=== PATIENT | male | born 1930 | race Caucasian/White ===

== ENCOUNTER 2017-03-15 08:25 | Emergency (ER) | payer OTHER ==
[~2017-03-15] VITALS: Ht 167.6 cm; Wt 95.2 kg
[~2017-03-15 08:25] MED LIST: ALBU90OI61 INH; ALLO300 PO; CALCAVITD PO; CHOL10002 PO; CLOP75 PO; ERGO400 PO; FEBU40TA PO; FISH OIL + D31 EACH; FLAX PO; FURO40 PO; GABA300 PO; Humalog100 UNIT/1; INDO50 PO; INSDET100 SQ; INSULANPEN SQ; ISOMON60ER PO; LISI20 PO; LOSA25 PO; METF500 PO; MOME220I IH; OSEL75CA PO; POTCHL10ER PO; PROB500 PO; SPIR50 PO; Simvastatin20 MG PO; TAMS.4ER PO; TRIA80TC TOP; WARF1 PO; WARF5 PO; [UNRECOGNIZED DRUG - OTHER]
[2017-03-15 09:43] LABS: BASOPHILS ABSOLUTE AUTO 0.02 K/mm3 (0.00-0.23); BASOPHILS PERCENT AUTO 0 % (0-2); EOSINOPHILS ABSOLUTE AUTO 0.25 K/mm3 (0.00-0.68); EOSINOPHILS PERCENT AUTO 3 % (0-6); Hematocrit 38.2 % (37.0-53.0); Hemoglobin 12.6 g/dL (13.5-17.5); IMMATURE GRAN ABSOLUTE AUTO 0.01 K/mm3 (0.00-0.10); IMMATURE GRAN PERCENT AUTO 0 % (0-1); LYMPHOCYTES ABSOLUTE AUTO 1.72 K/mm3 (0.84-5.20); LYMPHOCYTES PERCENT AUTO 24 % (21-46); MONOCYTES PERCENT AUTO 7 % (4-13); Mean Corpuscular HGB 28.3 pg (26.0-34.0); Mean Corpuscular Volume 86 fL (80-100); Mean Platelet Volume 10.1 fL (9.1-12.4); NEUTROPHILS ABSOLUTE AUTO 4.79 K/mm3 (1.96-9.15); NEUTROPHILS PERCENT AUTO 66 % (41-73); Platelet Count 190 K/mm3 (150-400); RDW Coefficient Variation 14.4 % (11.7-14.2); RDW Standard Deviation 45.2 fL (35.1-46.3); Red Blood Cell Count 4.45 M/mm3 (4.30-5.90); White Blood Cell Count 7.29 K/mm3 (4.00-11.30)
[2017-03-15 10:03] LABS: Alanine Aminotransfer (ALT/SGP 22 U/L (12-78); Albumin, Blood 3.3 g/dL (3.4-5.0); Albumin/Globulin Ratio 0.9 (0.8-1.8); Alk Phos 95 U/L (50-136); Anion Gap 8 mmol/L (6-16); Aspartate Aminotrans (AST/SGOT 21 U/L (12-37); Bilirubin, Total 0.6 mg/dL (0.1-1.0); Blood Urea Nitrogen 17 mg/dL (8-24); Bun/Creatinine Ratio 14.2 (12.0-20.0); CO2, Blood 29 mmol/L (21-32); Calcium, Blood 8.4 mg/dL (8.5-10.1); Chloride, Blood 104 mmol/L (98-108); Globulin, Blood 3.8 g/dL (2.2-4.0); Glomerular Filtration Rate >60 (60-); Glucose, Blood 157 mg/dL (70-99); Potassium, Blood 3.5 mmol/L (3.5-5.5); Sodium, Blood 141 mmol/L (136-145); Total Protein, Blood 7.1 g/dL (6.4-8.2); Troponin I <0.015 ng/mL (0.000-0.040)
[2017-03-15 10:07] LABS: Influenza A Negative (NEGATIVE); Influenza B Negative (NEGATIVE)
[2017-03-15] MEDS ORDERED: ALLO100 PO (10:08)
[2017-03-15] MEDS ORDERED: CLOP75 PO (10:08)
[2017-03-15] MEDS ORDERED: FURO80 PO (10:08)
[2017-03-15] MEDS ORDERED: GABA300 PO (10:08)
[2017-03-15] MEDS ORDERED: INSULANPEN SC (10:09)
[2017-03-15] MEDS ORDERED: Humalog100 UNIT/1 SC (10:09)
[2017-03-15] MEDS ORDERED: SIMV10 PO (10:10)
[2017-03-15] MEDS ORDERED: METO25ER PO (10:10)
[2017-03-15] MEDS ORDERED: TAMS.4ER PO (10:10)
[2017-03-15] MEDS ORDERED: POTCHL20ER PO (10:10)
[2017-03-15] MEDS ORDERED: LOSA25 PO (10:10)
[2017-03-15] MEDS ORDERED: FISH OIL 1,2001 EACH PO (10:11)
[2017-03-15] MEDS ORDERED: CHOL10002 PO (10:11)
[2017-03-15] MEDS ORDERED: FLAXSEED1000 MG PO (10:11)
== END 2017-03-15 12:39 | disposition home or self-care (01) ==
LOC: ER 08:25
PROVIDERS: Emergency Medicine
DX: M25.511 Pain in right shoulder (principal); R53.83 Other fatigue; E11.9 Type 2 diabetes mellitus without complications; I25.10 Atherosclerotic heart disease of native coronary artery without angina pectoris; R61 Generalized hyperhidrosis; Z88.1 Allergy status to other antibiotic agents; Z79.899 Other long term (current) drug therapy; Z79.4 Long term (current) use of insulin; J45.909 Unspecified asthma, uncomplicated
CPT/HCPCS: 36415; 71020; 80053; 83690; 83880; 84484; 85025; 87804; 93005; 93010; 96372; 99284; J3301

== ENCOUNTER 2018-08-29 18:11 | Emergency (ER) | payer OTHER ==
[~2018-08-29] VITALS: Ht 167.6 cm; Wt 98.4 kg
[~2018-08-29 18:11] MED LIST changes: +ALLO100 PO; +FISH OIL 1,2001 EACH PO; +FLAXSEED1000 MG PO; +FURO80 PO; +Humalog100 UNIT/1 SC; +INSULANPEN SC; +METO25ER PO; +POTCHL20ER PO; +SIMV10 PO
[2018-08-29 18:51] LABS: BASOPHILS ABSOLUTE AUTO 0.02 K/mm3 (0.00-0.23); BASOPHILS PERCENT AUTO 0 % (0-2); EOSINOPHILS ABSOLUTE AUTO 0.13 K/mm3 (0.00-0.68); EOSINOPHILS PERCENT AUTO 2 % (0-6); Hematocrit 35.6 % (37.0-53.0); IMMATURE GRAN ABSOLUTE AUTO 0.02 K/mm3 (0.00-0.10); IMMATURE GRAN PERCENT AUTO 0 % (0-1); LYMPHOCYTES ABSOLUTE AUTO 0.83 K/mm3 (0.84-5.20); LYMPHOCYTES PERCENT AUTO 12 % (21-46); MONOCYTES ABSOLUTE AUTO 0.61 K/mm3 (0.16-1.47); MONOCYTES PERCENT AUTO 9 % (4-13); Mean Corpuscular HGB 26.4 pg (26.0-34.0); Mean Corpuscular HGB Conc 30.9 g/dL (31.5-36.5); Mean Corpuscular Volume 85 fL (80-100); Mean Platelet Volume 9.9 fL (9.1-12.4); NEUTROPHILS ABSOLUTE AUTO 5.44 K/mm3 (1.96-9.15); NEUTROPHILS PERCENT AUTO 77 % (41-73); Platelet Count 211 K/mm3 (150-400); RDW Coefficient Variation 16.2 % (11.7-14.2); RDW Standard Deviation 49.9 fL (35.1-46.3); Red Blood Cell Count 4.17 M/mm3 (4.30-5.90); White Blood Cell Count 7.05 K/mm3 (4.00-11.30)
[2018-08-29 18:59] LABS: Bun/Creatinine Ratio 16.8 (12.0-20.0); Calcium, Blood 8.1 mg/dL (8.5-10.1); Creatinine, Blood 2.56 mg/dL (0.60-1.20); Magnesium, Blood 2.2 mg/dL (1.6-2.4)
[2018-09-14] MEDS ORDERED: CLOP75 PO (07:10)
[2018-09-14] MEDS ORDERED: POTA10T PO (07:11)
[2018-09-14] MEDS ORDERED: FISH OIL 1,001000 MG PO (07:11)
[2018-09-14] MEDS ORDERED: CLIN300 PO (07:12)
[2018-09-14] MEDS ORDERED: METO5 PO (07:12)
[2018-09-14] MEDS ORDERED: INSULANPEN (07:14)
== END 2018-08-29 21:00 | disposition home or self-care (01) ==
LOC: ER 18:11
PROVIDERS: Emergency Medicine
DX: S00.03XA Contusion of scalp, initial encounter (principal); S80.01XA Contusion of right knee, initial encounter; R53.1 Weakness; W18.30XA Fall on same level, unspecified, initial encounter; Z88.0 Allergy status to penicillin; Z88.8 Allergy status to other drugs, medicaments and biological substances; Z79.899 Other long term (current) drug therapy; Z79.4 Long term (current) use of insulin; E11.9 Type 2 diabetes mellitus without complications; J45.909 Unspecified asthma, uncomplicated; I48.91 Unspecified atrial fibrillation
CPT/HCPCS: 36415; 70450; 73562-RT; 80048; 83735; 85025; 93005; 93010; 99284-25; A9270; A9270-GY

== ENCOUNTER 2018-09-02 16:44 | Inpatient (IN) | payer OTHER ==
[~2018-09-02] VITALS: Ht 167.6 cm; Wt 102.8 kg
[~2018-09-02 16:44] MED LIST changes: -BUME2 PO; -CALCIUM 1,0001 EACH PO; -CLIN300 PO; -DOCU100 PO; -ELIQUIS2.5 MG PO; -FISH OIL 1,001000 MG PO; -HUMALOG KW200 UNIT/1 SC; -INSULANPEN; -METO5 PO; -MIDO5 PO; -MUPIROCIN1 GM TOP; -Micro-K10 MEQ PO; -Monodox100 MG PO; -POTA10T PO; -PRAM.5 PO; -SINEMET 25-1001 EACH PO; -TORSE20 PO
[2018-09-03 05:15] LABS: BASOPHILS ABSOLUTE AUTO 0.03 K/mm3 (0.00-0.23); BASOPHILS PERCENT AUTO 1 % (0-2); EOSINOPHILS ABSOLUTE AUTO 0.24 K/mm3 (0.00-0.68); EOSINOPHILS PERCENT AUTO 4 % (0-6); Hematocrit 35.4 % (37.0-53.0); Hemoglobin 10.6 g/dL (13.5-17.5); IMMATURE GRAN ABSOLUTE AUTO 0.02 K/mm3 (0.00-0.10); IMMATURE GRAN PERCENT AUTO 0 % (0-1); LYMPHOCYTES ABSOLUTE AUTO 1.03 K/mm3 (0.84-5.20); LYMPHOCYTES PERCENT AUTO 16 % (21-46); MONOCYTES ABSOLUTE AUTO 0.57 K/mm3 (0.16-1.47); MONOCYTES PERCENT AUTO 9 % (4-13); Mean Corpuscular HGB 26.1 pg (26.0-34.0); Mean Corpuscular HGB Conc 29.9 g/dL (31.5-36.5); Mean Corpuscular Volume 87 fL (80-100); Mean Platelet Volume 10.2 fL (9.1-12.4); NEUTROPHILS ABSOLUTE AUTO 4.73 K/mm3 (1.96-9.15); NEUTROPHILS PERCENT AUTO 71 % (41-73); Platelet Count 199 K/mm3 (150-400); RDW Coefficient Variation 17.2 % (11.7-14.2); RDW Standard Deviation 53.7 fL (35.1-46.3); Red Blood Cell Count 4.06 M/mm3 (4.30-5.90); White Blood Cell Count 6.62 K/mm3 (4.00-11.30)
[2018-09-03 05:43] LABS: Albumin, Blood 2.6 g/dL (3.4-5.0); Anion Gap 5 mmol/L (6-16); Blood Urea Nitrogen 60 mg/dL (8-24); Bun/Creatinine Ratio 18.3 (12.0-20.0); CO2, Blood 27 mmol/L (21-32); Calcium, Blood 8.2 mg/dL (8.5-10.1); Chloride, Blood 108 mmol/L (98-108); Creatinine, Blood 3.28 mg/dL (0.60-1.20); Glomerular Filtration Rate 19 (60-); Glucose, Blood 83 mg/dL (70-99); Magnesium, Blood 2.7 mg/dL (1.6-2.4); Phosphorus, Blood 4.9 mg/dL (2.5-4.9); Potassium, Blood 5.6 mmol/L (3.5-5.5); Sodium, Blood 140 mmol/L (136-145)
--- NOTE | 2018-09-03 05:44 | NUR ---
SHIFT SUMMARY PT ADMITTED FOR ACUTE KIDNEY INJURY SUPERIMPOSED ON CKD. FULL CODE. CARDIAC DIET. 1000 ML FLUID RESTRICTIONS. CBG AT AC AND HS. US RENAL WITH BLADDER ORDERED. DR. GALVAN CONSULT FOR ALONSO ON CKD, BUT IT DOES APPEAR THAT DR. GALVAN WAS ALREADY ON BOARD WITH THIS PT. LOVENOX FOR DVT PROPHYLAXIS. 20G IV TO THE R AC. 1 PERSON ASSIST TO THE BEDSIDE FOR USE OF URINAL TO VOID, THE PT IS INDEPENDENT WITH A WALKER AT BASELINE PER REPORT. HOWEVER, THE PT DENIED THE USE OF ANY ASSISTIVE DEVICES AT HOME. THE PT DOES PRESENT WITH SOME INTERMITTENT FORGETFULLNESS AND CONFUSION AT TIMES HOWEVER. TAKES MEDICATIONS WHOLE. THE PT PRESENTED TO THE ED WITH C/O INCREASED SWELLING TO HIS LEGS. THE PT HAS HAD PERSISTENT SWELLING DESPITE IV DIURESIS AT THE INFUSION CLINIC. THE PT ALSO APPEARS TO HAVE HAD MULTIPLE FALLS RECNETLY WITH BURSIS AND ABRATION LOCATED THROUGHOUT. THE PT STATED THAT HE HAS HAD SOME SIGNIFICATLY INCREASED WEAKNESS RECENTLY. THE PT IS PLEASENT AND COOPERATIVE WITH CARE. THE PT DOES APPEAR TO USE CALL LIGHT APPROPRIATELY HE DID CALL TO USE URINAL. HOWEVER, FREQUENT VISUAL CHECKS FOR SAFETY. CALL LIGHT IN REACH AND BED ALARM FOR SAFETY. WILL CONTINUE TO MONITOR.
--- NOTE | 2018-09-03 08:13 | NUR ---
CALLED HOSPITALIST PT [id number] SUGAR [id number]. I HELD SLIDING SCALE HUMALOG. CALLED HOSPITALIST TO SEE IF SHE WANTED EXTRA SCHEDULED TID HUMALOG HELD WELL. DOCTOR ORDERED DOSE HELD. SHE WILL REVIEW THE EMAR.
[2018-09-03] MEDS ORDERED: HUMALOG KW200 UNIT/1 SC (15:13)
[2018-09-03] MEDS ORDERED: ELIQUIS2.5 MG PO (15:13)
[2018-09-03] MEDS ORDERED: TORSE20 PO (15:15)
[2018-09-03] MEDS ORDERED: Micro-K10 MEQ PO (15:21)
[2018-09-03] MEDS ORDERED: CALCIUM 1,0001 EACH PO (15:27)
[2018-09-03] MEDS ORDERED: SINEMET 25-1001 EACH PO (15:28)
[2018-09-03] MEDS ORDERED: PRAM.5 PO (15:29)
[2018-09-03] MEDS ORDERED: CLIN300 PO (15:31)
[2018-09-03] MEDS ORDERED: BUME2 PO (15:32)
[2018-09-03] MEDS ORDERED: FEBU40TA PO (15:33)
--- NOTE | 2018-09-03 18:29 | NUR ---
SHIFT SUMMARY 87 YR OLD MALE ADMITTED FOR ALONSO. FULL CODE. PERIODS OF CONFUSION. A&O X 2-3. HX OF FREQUENT FALLS, WOUNDS ON BACK OF HEAD, TORSO AND LIMBS FROM FALLS. LIVES AT HOME WITH . MAY NOT BE COMPLIANT WITH MEDS STATES REGIMEN IS TOO DIFFICULT TO UNDERSTAND. ON TELE, PACED @ 60 BPM. FLUID OVERLOAD, DIURESING PT WITH 16 ML OF BUMEX. TODAY. 1000 ML FLUID RESTRICTION. 1 ASSIST W/FWWW TO BATHROOM. MEDS WHOLE WITH WATER. ACHS, MEDIUM SS. CARDIAC DIET. HX: CKD4, HTN, DM2, ANEMIA, AFIB, CVA, CHF, 4 VESSEL CABG, PACEMAKER. INSULIN DOSAGES CHANGED TODAY.
[2018-09-04 05:33] LABS: Hematocrit 33.7 % (37.0-53.0); Hemoglobin 10.5 g/dL (13.5-17.5)
[2018-09-04 05:51] LABS: Albumin, Blood 2.7 g/dL (3.4-5.0); Anion Gap 7 mmol/L (6-16); Blood Urea Nitrogen 60 mg/dL (8-24); Bun/Creatinine Ratio 18.9 (12.0-20.0); CO2, Blood 27 mmol/L (21-32); Calcium, Blood 8.3 mg/dL (8.5-10.1); Chloride, Blood 106 mmol/L (98-108); Creatinine, Blood 3.18 mg/dL (0.60-1.20); Glomerular Filtration Rate 20 (60-); Glucose, Blood 111 mg/dL (70-99); Magnesium, Blood 2.5 mg/dL (1.6-2.4); Phosphorus, Blood 5.3 mg/dL (2.5-4.9); Potassium, Blood 4.2 mmol/L (3.5-5.5); Sodium, Blood 140 mmol/L (136-145)
--- NOTE | 2018-09-04 06:43 | NUR ---
SHIFT SUMMARY PT AT TIMES CONFUSED BUT USING CALL LIGHT. ZEINAB GUILLEN TO BA. HE WAS ABLE TO SLEEP T/O NIGHT. BED ALARM IN USE FOR SAFETY.
--- NOTE | 2018-09-04 17:30 | NUR ---
SUMMARY PT SITTING UP AT THE EDGE OF THE BED VISITING WITH FRIENDS, PT HAS BEEN PLEASANT AND COOPERATIVE WITH CARE, FORGETFUL AND DOES NOT USE HIS CALL LIGHT, BED ALARM ON FOR SAFETY, PT IS A 1P ASSIST WITH THE WALKER, PT WORKED WITH PT AND OT TODAY, PLAN TO DC SOON WITH HOME HEALTH, VSS, NO ACUTE CHANGES, WILL CONT TO MONITOR
--- NOTE | 2018-09-05 05:52 | NUR ---
STEAM PLANT CONTROL ROOM OPERATOR SUMMARY PT AAOX3 WITH SOME INTERMITTENT CONFUSION/FORGETFULNESS. PT DOES ATTEMPT TO GET OUT OF BED WITHOUT ASSISTANCE AT TIMES BUT HAS USED THE CALL LIGHT MOST OF THE NIGHT. PT HAS HAD GOOD URINE OUTPUT TONIGHT WHILE DIURESING. SBP IN 80'S THIS AM, PT ASYMPTOMATIC. SBP HAS BEEN IN LOW 90'S SEVERAL TIMES SINCE ADMIT. PT STARTED ON NEW ORDERS FOR LISINOPRIL AND CARVEDILOL AT HS. OTHER VSS, WILL CONTINUE TO MONITOR.
[2018-09-05 05:57] LABS: Albumin, Blood 2.5 g/dL (3.4-5.0); Anion Gap 9 mmol/L (6-16); Blood Urea Nitrogen 58 mg/dL (8-24); Bun/Creatinine Ratio 20.4 (12.0-20.0); CO2, Blood 29 mmol/L (21-32); Calcium, Blood 8.3 mg/dL (8.5-10.1); Chloride, Blood 105 mmol/L (98-108); Creatinine, Blood 2.85 mg/dL (0.60-1.20); Glomerular Filtration Rate 22 (60-); Glucose, Blood 85 mg/dL (70-99); Magnesium, Blood 2.3 mg/dL (1.6-2.4); Potassium, Blood 3.2 mmol/L (3.5-5.5); Sodium, Blood 143 mmol/L (136-145)
--- NOTE | 2018-09-05 18:35 | NUR ---
SHIFT SUMMARY PATIENT IS VERY PLEASANT, HAS BEEN HYPOTENSIVE TODAY. BP MEDS HAVE BEEN HELD AND SPOKE WITH DR. GALVAN RELATED TO PATIENTS DIURETICS. THEY HAVE BEEN HELD TONIGHT AND WILL BE RESTARTED TOMORROW MORNING. CURRENTLY NO ACUTE CONCERNS FROM THE PATIENT, AWITING PATIENTS KIDNEYS TO BE ON THE TRENDING UP. PATIENT IS STAND BY ASSIST.
[2018-09-06 05:04] LABS: Hematocrit 33.3 % (37.0-53.0); Hemoglobin 10.3 g/dL (13.5-17.5)
[2018-09-06 05:28] LABS: Albumin, Blood 2.6 g/dL (3.4-5.0); Anion Gap 7 mmol/L (6-16); Blood Urea Nitrogen 63 mg/dL (8-24); Bun/Creatinine Ratio 19.7 (12.0-20.0); CO2, Blood 30 mmol/L (21-32); Calcium, Blood 8.1 mg/dL (8.5-10.1); Chloride, Blood 105 mmol/L (98-108); Creatinine, Blood 3.19 mg/dL (0.60-1.20); Glomerular Filtration Rate 20 (60-); Glucose, Blood 99 mg/dL (70-99); Magnesium, Blood 2.5 mg/dL (1.6-2.4); Potassium, Blood 3.6 mmol/L (3.5-5.5); Sodium, Blood 142 mmol/L (136-145)
--- NOTE | 2018-09-06 06:56 | NUR ---
SHIFT SUMMARY PT IS AN 87 Y/O MALE, ADMITTED FOR ALONSO. HE IS A&O X 3, THOUGH OCCASIONALLY FORGETFUL. PT'S BP WAS LOW DURING THE NIGHT, IN THE 80S SYSTOLICALLY AT START OF SHIFT. DR GALVAN WAS CONSULTED, WITH NO CHANGES IN ORDERS BUT TO CALL IF PT BECAME SYMPTOMATIC. ON A RECHECK, THE PT CAME DOWN TO 79/43 BUT DENIED ANY COMPLAINTS. THE HOSPITALIST DR JACOBSON WAS CONSULTED, AND WITH NO CHANGES IN ORDERS. THE PT WAS AMBULATED IN THE HALLS TO DETERMINE IF THERE WAS ANY CHANGES IN PT'S VITALS, AND HIS BP CAME UP TO 102/58, THOUGH THE PT REPORTED MILD LIGHTHEADEDNESS WHEN AMBULATING. PT REPORTED L KNEE PAIN, AND WAS MEDICATED WITH PRN TYLENOL. NO COMPLAINTS OF NAUSEA OR SOB. ALL OTHER VITALS STABLE. NO ACUTE CHANGES IN PT CONDITION NOTED. WILL CONTINUE TO MONITOR AND TREAT PER EMAR.
--- NOTE | 2018-09-06 18:44 | NUR ---
SHIFT SUMMARY PATIENT IS PLEASANT, NO ACUTE CONCENRS AT THIS TIME. HIS BLOOD PRESSURE IS BEING MONITORED AND HE IS CURRENTLY ON MIDODRINE AND A 2000ML FLUID RESTRICTION.
[2018-09-07 04:50] LABS: Hematocrit 33.4 % (37.0-53.0); Hemoglobin 10.3 g/dL (13.5-17.5)
[2018-09-07 05:10] LABS: Albumin, Blood 2.6 g/dL (3.4-5.0); Anion Gap 7 mmol/L (6-16); Blood Urea Nitrogen 64 mg/dL (8-24); Bun/Creatinine Ratio 21.4 (12.0-20.0); CO2, Blood 29 mmol/L (21-32); Chloride, Blood 105 mmol/L (98-108); Creatinine, Blood 2.99 mg/dL (0.60-1.20); Glomerular Filtration Rate 21 (60-); Glucose, Blood 100 mg/dL (70-99); Magnesium, Blood 2.5 mg/dL (1.6-2.4); Phosphorus, Blood 4.5 mg/dL (2.5-4.9); Potassium, Blood 3.6 mmol/L (3.5-5.5); Sodium, Blood 141 mmol/L (136-145)
--- NOTE | 2018-09-07 06:52 | NUR ---
SHIFT SUMMARY PT IS A 87 Y/O MALE, ADMITTED FOR ALONSO. HE IS A&O X 3, AND FORGETFUL. HE IS A SBA IN THE ROOM. NO COMPLAINTS OF PAIN, NAUSEA OR SOB. PT'S BP REMAINS IN THE 90-100 SYSTOLICALLY. PER EDUCATIONAL RESOURCE COORDINATOR PT IS ATRIAL FLUTTER IN THE 60S. ALL OTHER VITALS STABLE. NO OTHER ACUTE CHANGES IN PT CONDITION NOTED. WILL CONTINUE TO MONITOR AND TREAT PER EMAR UNTIL HAND OFF TO DAY SHIFT.
[2018-09-07] MEDS ORDERED: HUMALOG KW200 UNIT/1 SC (14:39)
[2018-09-07] MEDS ORDERED: Micro-K10 MEQ PO (14:46)
[2018-09-07] MEDS ORDERED: DOCU100 PO (14:49)
[2018-09-07] MEDS ORDERED: BUME2 PO (14:49)
[2018-09-07] MEDS ORDERED: MIDO5 PO (14:55)
--- NOTE | 2018-09-07 16:34 | NUR ---
D/C INSTRUCTIONS PROVIDED AND EXPLAINED TO PT AND PT'S SPOUSE. IV AND TELE REMOVED. PT D/C VIA WHEELCHAIR WITH ESCORT AND FAMILY.
[2018-09-14] MEDS ORDERED: CLOP75 PO (07:10)
[2018-09-14] MEDS ORDERED: FISH OIL 1,001000 MG PO (07:11)
[2018-09-14] MEDS ORDERED: POTA10T PO (07:11)
[2018-09-14] MEDS ORDERED: METO5 PO (07:12)
[2018-09-14] MEDS ORDERED: CLIN300 PO (07:12)
[2018-09-14] MEDS ORDERED: INSULANPEN (07:14)
== END 2018-09-07 15:30 | disposition home or self-care (01) | DRG 291 ==
LOC: ER 16:44 → MEDS 22:38 → ENPENDDIS 09-07 11:15 → MEDS 09-07 15:30
PROVIDERS: Internal Medicine Nephrology; ADMIT Hospitalist
DX: I13.0 Hypertensive heart and chronic kidney disease with heart failure and stage 1 through stage 4 chronic kidney disease, or unspecified chronic kidney disease (principal); I50.31 Acute diastolic (congestive) heart failure; J96.01 Acute respiratory failure with hypoxia; N17.9 Acute kidney failure, unspecified; N25.81 Secondary hyperparathyroidism of renal origin; N18.3 Chronic kidney disease, stage 3 (moderate); J44.9 Chronic obstructive pulmonary disease, unspecified; K21.9 Gastro-esophageal reflux disease without esophagitis; I95.9 Hypotension, unspecified; E11.22 Type 2 diabetes mellitus with diabetic chronic kidney disease; E11.42 Type 2 diabetes mellitus with diabetic polyneuropathy; D63.1 Anemia in chronic kidney disease; E87.6 Hypokalemia; E78.00 Pure hypercholesterolemia, unspecified; I48.0 Paroxysmal atrial fibrillation; E66.9 Obesity, unspecified; Z68.36 Body mass index [BMI] 36.0-36.9, adult; Z88.0 Allergy status to penicillin; Z86.73 Personal history of transient ischemic attack (TIA), and cerebral infarction without residual deficits
CPT/HCPCS: 36415; 71046; 76770; 80048; 80069; 82947; 83735; 83880; 85014; 85018; 85025; 92523; 93005; 93010; 93308; 94760; 96360; 97116; 97162; 97165; 97530; 97535; 99285-25; A9270; J1650; J1815; J3480; J7030; J7050

== ENCOUNTER → 2018-09-02 | Outpatient (CLI) | payer OTHER ==
[~2018-09-02] MED LIST changes: +BUME2 PO; +CALCIUM 1,0001 EACH PO; +CLIN300 PO; +DOCU100 PO; +ELIQUIS2.5 MG PO; +FISH OIL 1,001000 MG PO; +HUMALOG KW200 UNIT/1 SC; +INSULANPEN; +METO5 PO; +MIDO5 PO; +MUPIROCIN1 GM TOP; +Micro-K10 MEQ PO; +Monodox100 MG PO; +POTA10T PO; +PRAM.5 PO; +SINEMET 25-1001 EACH PO; +TORSE20 PO
== END | disposition home or self-care (01) ==
LOC: LAB EV 16:43 → LAB SHORT 16:43
DX: R60.0 Localized edema (principal)
CPT/HCPCS: 36415; 83880

== ENCOUNTER 2018-09-14 07:48 | Day surgery (SDC) | payer OTHER ==
[~2018-09-14] VITALS: Ht 170.2 cm; Wt 95.0 kg
[~2018-09-14 07:48] MED LIST changes: +BUME2 PO; +CALCIUM 1,0001 EACH PO; +CLIN300 PO; +DOCU100 PO; +ELIQUIS2.5 MG PO; +FISH OIL 1,001000 MG PO; +HUMALOG KW200 UNIT/1 SC; +INSULANPEN; +METO5 PO; +MIDO5 PO; +Micro-K10 MEQ PO; +POTA10T PO; +PRAM.5 PO; +SINEMET 25-1001 EACH PO; +TORSE20 PO
--- NOTE | 2018-09-14 11:05 | NUR ---
PT DRESSED, IV DC'D INTACT, DC INSTRUCTIONS GIVEN R/T SWALLOWING HOT/COARSE FOODS (AVOID), PT AND SIG OTHER DC'D BY JOCY W ESCORT AND THIS RN, SIG OTHER DRIVING PT HOME.
== END 2018-09-14 22:46 | disposition home or self-care (01) ==
LOC: MHTC 07:48
DX: I35.0 Nonrheumatic aortic (valve) stenosis (principal); I07.1 Rheumatic tricuspid insufficiency; I13.0 Hypertensive heart and chronic kidney disease with heart failure and stage 1 through stage 4 chronic kidney disease, or unspecified chronic kidney disease; E11.22 Type 2 diabetes mellitus with diabetic chronic kidney disease; N18.3 Chronic kidney disease, stage 3 (moderate); I50.9 Heart failure, unspecified; I25.10 Atherosclerotic heart disease of native coronary artery without angina pectoris; I48.91 Unspecified atrial fibrillation; E11.42 Type 2 diabetes mellitus with diabetic polyneuropathy; E78.5 Hyperlipidemia, unspecified; E66.9 Obesity, unspecified; Z95.1 Presence of aortocoronary bypass graft; Z86.73 Personal history of transient ischemic attack (TIA), and cerebral infarction without residual deficits; Z68.35 Body mass index [BMI] 35.0-35.9, adult; Z79.899 Other long term (current) drug therapy; Z79.4 Long term (current) use of insulin; Z79.01 Long term (current) use of anticoagulants; Z88.1 Allergy status to other antibiotic agents; Z88.0 Allergy status to penicillin; Z88.8 Allergy status to other drugs, medicaments and biological substances; Z95.0 Presence of cardiac pacemaker
CPT/HCPCS: 82947; 93312; 93325; J2370; J2704; J7120

== ENCOUNTER 2018-09-16 20:45 | Inpatient (IN) | payer OTHER ==
[~2018-09-16] VITALS: Ht 172.7 cm; Wt 99.7 kg
[2018-09-16 22:10] LABS: BASOPHILS ABSOLUTE AUTO 0.02 K/mm3 (0.00-0.23); BASOPHILS PERCENT AUTO 0 % (0-2); EOSINOPHILS ABSOLUTE AUTO 0.14 K/mm3 (0.00-0.68); EOSINOPHILS PERCENT AUTO 1 % (0-6); Hematocrit 37.5 % (37.0-53.0); Hemoglobin 11.5 g/dL (13.5-17.5); IMMATURE GRAN ABSOLUTE AUTO 0.03 K/mm3 (0.00-0.10); IMMATURE GRAN PERCENT AUTO 0 % (0-1); LYMPHOCYTES ABSOLUTE AUTO 1.08 K/mm3 (0.84-5.20); LYMPHOCYTES PERCENT AUTO 10 % (21-46); MONOCYTES ABSOLUTE AUTO 0.85 K/mm3 (0.16-1.47); MONOCYTES PERCENT AUTO 8 % (4-13); Mean Corpuscular HGB 26.7 pg (26.0-34.0); Mean Corpuscular HGB Conc 30.7 g/dL (31.5-36.5); Mean Corpuscular Volume 87 fL (80-100); Mean Platelet Volume 10.8 fL (9.1-12.4); NEUTROPHILS ABSOLUTE AUTO 8.56 K/mm3 (1.96-9.15); NEUTROPHILS PERCENT AUTO 80 % (41-73); Platelet Count 187 K/mm3 (150-400); RDW Coefficient Variation 17.3 % (11.7-14.2); White Blood Cell Count 10.68 K/mm3 (4.00-11.30)
[2018-09-16 22:25] LABS: Albumin, Blood 2.9 g/dL (3.4-5.0); Albumin/Globulin Ratio 0.7 (0.8-1.8); Bilirubin, Total 0.9 mg/dL (0.1-1.0); Bun/Creatinine Ratio 16.8 (12.0-20.0); Calcium, Blood 8.2 mg/dL (8.5-10.1); Creatinine, Blood 6.13 mg/dL (0.60-1.20); Globulin, Blood 4.1 g/dL (2.2-4.0); International Normalized Ratio 1.09; Potassium, Blood 4.9 mmol/L (3.5-5.5); Prothrombin Time Results 11.5 Sec (9.7-11.5)
[2018-09-17 05:19] LABS: BASOPHILS ABSOLUTE AUTO 0.02 K/mm3 (0.00-0.23); BASOPHILS PERCENT AUTO 0 % (0-2); EOSINOPHILS ABSOLUTE AUTO 0.14 K/mm3 (0.00-0.68); EOSINOPHILS PERCENT AUTO 2 % (0-6); Hematocrit 31.1 % (37.0-53.0); Hemoglobin 9.6 g/dL (13.5-17.5); IMMATURE GRAN ABSOLUTE AUTO 0.04 K/mm3 (0.00-0.10); IMMATURE GRAN PERCENT AUTO 1 % (0-1); LYMPHOCYTES ABSOLUTE AUTO 0.97 K/mm3 (0.84-5.20); LYMPHOCYTES PERCENT AUTO 11 % (21-46); MONOCYTES ABSOLUTE AUTO 0.68 K/mm3 (0.16-1.47); MONOCYTES PERCENT AUTO 8 % (4-13); Mean Corpuscular HGB 25.9 pg (26.0-34.0); Mean Corpuscular HGB Conc 30.9 g/dL (31.5-36.5); Mean Corpuscular Volume 84 fL (80-100); Mean Platelet Volume 11.3 fL (9.1-12.4); NEUTROPHILS ABSOLUTE AUTO 6.65 K/mm3 (1.96-9.15); NEUTROPHILS PERCENT AUTO 78 % (41-73); Platelet Count 165 K/mm3 (150-400); RDW Coefficient Variation 17.2 % (11.7-14.2); RDW Standard Deviation 52.8 fL (35.1-46.3)
[2018-09-17 05:39] LABS: Bun/Creatinine Ratio 17.5 (12.0-20.0); Calcium, Blood 7.5 mg/dL (8.5-10.1); Creatinine, Blood 5.84 mg/dL (0.60-1.20); Potassium, Blood 4.8 mmol/L (3.5-5.5)
--- NOTE | 2018-09-17 07:31 | NUR ---
SHIFT SUMMARY PT HAD SOME HYPOTENSION NOTED DURING SHIFT. PT WAS GIVEN FLUID ORDERED. PT HAD NO SX'S OR ISSUES RELATED TO LOW BP. PT HAD STATED HE HAD NOT VOIDED SIN THE AM OF 09/16/18. BLADDER SCAN WAS UNREMARKABLE. PT IS NOTABLY EDEMATOUS T/O OUT. PT HAS SWOLLEN/ RED LEFT ARM AND L CALF AREA. PT HAD INCREASED MENDOZA THAT RESPONDED WELL TO APAP. PT AWAKE BREATHING EASY. CALL LIGHT IN REACH.
--- NOTE | 2018-09-17 10:09 | NUR ---
DOCTOR ROUNDED DOCTOR ORDERED IV FLUIDS STOPPED FOR NOW DUE TO CHF CONCERNS. I EXPRESSED CONCERN FOR HYPOTENSIVE EPISODES. DOCTOR REQUESTS I CONTINUE TO MONITOR AND KEEP HIM INFORMED.
[2018-09-17 13:32] LABS: Vancomycin, Random 12.9 ug/mL
--- NOTE | 2018-09-17 14:17 | NUR ---
CALLED HOSPITALIST PT'S SISTER TOOK ME ASIDE AND STATED THAT SHE BELIEVES THE PT'S HAS BEEN TRIPLING THE PT'S DIURETIC DOSE, SHE STATED THAT THE PT'S SOMETIMES GETS CONFUSED. FAMILY ALSO INFORMED ME THAT COLE IS THIS PT'S KIDNEY DOCTOR AT HOME.
--- NOTE | 2018-09-17 16:09 | NUR ---
SHIFT SUMMARY B88 YR OLD MALE ADMITTED FOR ACUTE RENAL FAILURE. FULL CODE. HYPOTENSIVE EPISODES LAST NIGHT AND THIS MORNING. MEMORY IMPAIRMENT AT BASELINE. PACEMAKER IN PLACE. ACHS, MED SLIDING SCALE, INSULIN TX. PT IS CONFUSED. SISTER STATES THAT HE IS BETTER THAN WHEN HE WAS BROUGHT IN BUT STILL ONLY 50% ORIENTED. CARDIAC DIET. HE LIVES WITH HIS GIRLFRIEND. [place] PT. IV FLUIDS DC'D TODAY DUE TO CHF CONCERNS. PT'S EXTREMETIES ARE EDEMATOUS. PT'S LEFT ARM IS RED AND EDEMATOUS. BLE HAVE NUMEROUS SCABS THROUGHOUT. UNCLAIMED PROPERTY OFFICER CONSULT NEEDS TO BE CALLED IN TOMORROW. MEDS WHOLE WITH WATER. HX: CKD3, CVA, DM2, CHF, ASTHMA, HTN, GOUT, PERIPHERAL NEUROPATHY. SISTER INFORMED ME THAT SHE SUSPECTS HIS GIRLFRIEND MAY HAVE BEEN INADVERTENTLY TRIPLING THE PT'S DIURETIC DOSE AT HOME, SHE INFORMS ME THAT SHE THINKS HIS GIRLFRIEND GETS CONFUSED. GALVAN IS THIS PT'S KIDNEY
--- NOTE | 2018-09-18 03:44 | NUR ---
SHIFT SUMMARY PT HAD SOME INCREASED SOB. PT WAS PLACED ON 2LPM VIA NC. PT SOB DECREASED. PT ALSO CONTINUES TO HAVE LOW BP'S. PT DID HAVE SOME URINE OUTPUT. PT STATES HIS ARM AND LEG FEEL BETTER. PT REPORTS HAVING DIFICULTY SLEEPING THIS SHIFT. WHEN CHECKED PT HAS BEEN SLEEPING SOUNDLY. PT CURRENTLY SLEEPING AND BREATHING EASY. CALL LIGHT IN REACH.
[2018-09-18 04:41] LABS: BASOPHILS ABSOLUTE AUTO 0.03 K/mm3 (0.00-0.23); BASOPHILS PERCENT AUTO 0 % (0-2); EOSINOPHILS PERCENT AUTO 4 % (0-6); Hematocrit 32.5 % (37.0-53.0); Hemoglobin 10.1 g/dL (13.5-17.5); IMMATURE GRAN ABSOLUTE AUTO 0.02 K/mm3 (0.00-0.10); IMMATURE GRAN PERCENT AUTO 0 % (0-1); LYMPHOCYTES ABSOLUTE AUTO 0.92 K/mm3 (0.84-5.20); LYMPHOCYTES PERCENT AUTO 12 % (21-46); MONOCYTES ABSOLUTE AUTO 0.58 K/mm3 (0.16-1.47); MONOCYTES PERCENT AUTO 8 % (4-13); Mean Corpuscular HGB 26.5 pg (26.0-34.0); Mean Corpuscular HGB Conc 31.1 g/dL (31.5-36.5); Mean Corpuscular Volume 85 fL (80-100); Mean Platelet Volume 10.2 fL (9.1-12.4); NEUTROPHILS ABSOLUTE AUTO 5.85 K/mm3 (1.96-9.15); NEUTROPHILS PERCENT AUTO 76 % (41-73); Platelet Count 179 K/mm3 (150-400); RDW Coefficient Variation 16.9 % (11.7-14.2); RDW Standard Deviation 52.6 fL (35.1-46.3); Red Blood Cell Count 3.81 M/mm3 (4.30-5.90)
[2018-09-18 05:01] LABS: Alanine Aminotransfer (ALT/SGP 27 U/L (12-78); Albumin, Blood 2.4 g/dL (3.4-5.0); Albumin/Globulin Ratio 0.7 (0.8-1.8); Alk Phos 89 U/L (50-136); Anion Gap 9 mmol/L (6-16); Aspartate Aminotrans (AST/SGOT 43 U/L (12-37); Blood Urea Nitrogen 108 mg/dL (8-24); Bun/Creatinine Ratio 17.8 (12.0-20.0); CO2, Blood 25 mmol/L (21-32); Calcium, Blood 7.5 mg/dL (8.5-10.1); Chloride, Blood 102 mmol/L (98-108); Creatinine, Blood 6.08 mg/dL (0.60-1.20); Globulin, Blood 3.5 g/dL (2.2-4.0); Glomerular Filtration Rate 9 (60-); Glucose, Blood 103 mg/dL (70-99); Potassium, Blood 4.5 mmol/L (3.5-5.5); Sodium, Blood 136 mmol/L (136-145); Total Protein, Blood 5.9 g/dL (6.4-8.2); Vancomycin, Random 16.5 ug/mL
--- NOTE | 2018-09-18 18:15 | NUR ---
SHIFT SUMMARY: NO ACUTE CHANGES TO REPORT TTHIS SHIFT. PT A&O; [place]; OCCASIONALLY FORGETFUL; CALM AND COOPERATIVE WITH CARE. NO C/O PAIN THIS SHIFT. TELE IN PLACE; PACED @ 69 DURING MORNING ASSESSMENT; CARDIOLOGY CONSULT REQUESTED THIS SHIFT R/T AORTIC STENOSIS; DR LUNDY SAW PATIENT THIS SHIFT. PT & OT EVAL & TREAT; PT UP WITH SBA TO BATHROOM & CHAIR. WCTM.
--- NOTE | 2018-09-19 05:10 | NUR ---
SHIFT SUMMARY PT PLEASANT AND COOPERATIVE. TIRES EASILY BUT REPORTS THAT SOB W/ EXERTION IS MUCH IMPROVED. PT WALKED ACROSS HIS ROOM AND DOWN THE OLIVEIRA TO THE NURSE'S STATION AND BACK TO HIS ROOM AND TOLERATED WELL. PT EDEMATOUS ON LUE AND LLE. SOME WEEPING TO LLE. ABD SLIGHTLY FIRM AND DISTENDED. PT COULD NOT TELL ME IF THIS WAS NORMAL FOR HIM. PT FORGETFUL WITH SOME MINIMAL CONFUSION. PT MEDICATED BY DAY RN FOR RESTLESS LEGS. PT REPORTS DRASTIC IMPROVEMENT. NO FURTHER MEDICATION REQUIRED THIS EVENING FOR LEG DISCOMFORT. BLOOD PRESSURE REMAINS HYPOTENSIVE WITH SYSTOLIC IN THE LOW 90'S, THIS HAS BEEN PATIENT'S BASELINE. VSS. PT RESTING IN BED AT THIS TIME. NO ACUTE CHANGES.
[2018-09-19 05:36] LABS: BASOPHILS ABSOLUTE AUTO 0.03 K/mm3 (0.00-0.23); BASOPHILS PERCENT AUTO 1 % (0-2); EOSINOPHILS ABSOLUTE AUTO 0.42 K/mm3 (0.00-0.68); EOSINOPHILS PERCENT AUTO 7 % (0-6); Hematocrit 33.1 % (37.0-53.0); Hemoglobin 10.1 g/dL (13.5-17.5); IMMATURE GRAN ABSOLUTE AUTO 0.02 K/mm3 (0.00-0.10); IMMATURE GRAN PERCENT AUTO 0 % (0-1); LYMPHOCYTES ABSOLUTE AUTO 1.06 K/mm3 (0.84-5.20); LYMPHOCYTES PERCENT AUTO 17 % (21-46); MONOCYTES ABSOLUTE AUTO 0.67 K/mm3 (0.16-1.47); MONOCYTES PERCENT AUTO 11 % (4-13); Mean Corpuscular HGB 25.9 pg (26.0-34.0); Mean Corpuscular HGB Conc 30.5 g/dL (31.5-36.5); Mean Corpuscular Volume 85 fL (80-100); Mean Platelet Volume 10.3 fL (9.1-12.4); NEUTROPHILS ABSOLUTE AUTO 4.18 K/mm3 (1.96-9.15); NEUTROPHILS PERCENT AUTO 66 % (41-73); Platelet Count 192 K/mm3 (150-400); RDW Coefficient Variation 16.6 % (11.7-14.2); RDW Standard Deviation 51.1 fL (35.1-46.3); White Blood Cell Count 6.38 K/mm3 (4.00-11.30)
[2018-09-19 06:07] LABS: Alanine Aminotransfer (ALT/SGP 27 U/L (12-78); Albumin, Blood 2.5 g/dL (3.4-5.0); Albumin/Globulin Ratio 0.7 (0.8-1.8); Alk Phos 91 U/L (50-136); Anion Gap 11 mmol/L (6-16); Aspartate Aminotrans (AST/SGOT 37 U/L (12-37); Bilirubin, Total 0.8 mg/dL (0.1-1.0); Blood Urea Nitrogen 107 mg/dL (8-24); Bun/Creatinine Ratio 17.9 (12.0-20.0); CO2, Blood 24 mmol/L (21-32); Calcium, Blood 7.6 mg/dL (8.5-10.1); Chloride, Blood 102 mmol/L (98-108); Creatinine, Blood 5.99 mg/dL (0.60-1.20); Globulin, Blood 3.4 g/dL (2.2-4.0); Glomerular Filtration Rate 10 (60-); Glucose, Blood 91 mg/dL (70-99); Potassium, Blood 4.4 mmol/L (3.5-5.5); Sodium, Blood 137 mmol/L (136-145); Total Protein, Blood 5.9 g/dL (6.4-8.2); Vancomycin, Random 14.3 ug/mL
--- NOTE | 2018-09-19 19:04 | NUR ---
SHIFT SUMMARY PT AXO, PLEASANT AND COOPERATIVE WITH CARE. SURGICAL CONSULT CALLED FOR PERMICATH PLACEMENT. PT IS TO BE NPO AT MIDNIGHT TONIGHT 09/20/18. VSS. L ARM SWOLLEN, LEVAQUIN INFUSING AT THIS TIME. IV PATENT AND INFUSING THOUGH IV IN R. ARM IS A 20G. PT'S SISTER PRESENT IN ROOM THROUGHOUT THE DAY. BED IN LOW POSITION, CALL LIGHT WITHIN REACH. PT AMBULATES WITH 1 ASSSIT AND GB AND FWW. PT AMBULATED 200 FEET X2 THIS SHIFT.
--- NOTE | 2018-09-20 04:35 | NUR ---
SHIFT SUMMARY PT PLEASANT AND COOPERATIVE. [place]. FORGETFUL. RECLINER PLACED IN ROOM, PT STATED THAT HE HAS A DIFFICULT TIME SLEEPING IN THE BED AND THAT HE SLEEPS IN A RECLINER AT HOME. PT SLEPT IN THE RECLINER THIS EVENING. SLEEPING OFF AND ON THROUGHOUT THE NIGHT. BREATHING AUDIBLY WHEEZY. PT SOB, ESPECIALLY WITH EXERTION. LUE AND LLE EDEMATOUS. PT GIVEN MIRAPEX FOR RESTLESS LEGS. DENIED PAIN THROUGHOUT THE NIGHT. AMBULATED WELL WITH SBA. PT HAS BEEN NPO SINCE MIDNIGHT FOR PERMACATH PLACEMENT TODAY. NO ACUTE CHANGES THIS EVENING. VSS. WILL CONTINUE TO MONITOR.
[2018-09-20 04:41] LABS: BASOPHILS ABSOLUTE AUTO 0.02 K/mm3 (0.00-0.23); BASOPHILS PERCENT AUTO 0 % (0-2); EOSINOPHILS ABSOLUTE AUTO 0.42 K/mm3 (0.00-0.68); EOSINOPHILS PERCENT AUTO 8 % (0-6); IMMATURE GRAN ABSOLUTE AUTO 0.02 K/mm3 (0.00-0.10); IMMATURE GRAN PERCENT AUTO 0 % (0-1); LYMPHOCYTES ABSOLUTE AUTO 0.84 K/mm3 (0.84-5.20); LYMPHOCYTES PERCENT AUTO 15 % (21-46); MONOCYTES ABSOLUTE AUTO 0.55 K/mm3 (0.16-1.47); MONOCYTES PERCENT AUTO 10 % (4-13); Mean Corpuscular HGB 26.3 pg (26.0-34.0); Mean Corpuscular HGB Conc 31.3 g/dL (31.5-36.5); Mean Corpuscular Volume 84 fL (80-100); Mean Platelet Volume 9.9 fL (9.1-12.4); NEUTROPHILS ABSOLUTE AUTO 3.59 K/mm3 (1.96-9.15); NEUTROPHILS PERCENT AUTO 66 % (41-73); Platelet Count 185 K/mm3 (150-400); RDW Coefficient Variation 16.5 % (11.7-14.2); RDW Standard Deviation 50.7 fL (35.1-46.3); White Blood Cell Count 5.44 K/mm3 (4.00-11.30)
[2018-09-20 05:05] LABS: Alanine Aminotransfer (ALT/SGP 23 U/L (12-78); Albumin, Blood 2.4 g/dL (3.4-5.0); Albumin/Globulin Ratio 0.7 (0.8-1.8); Alk Phos 96 U/L (50-136); Anion Gap 11 mmol/L (6-16); Aspartate Aminotrans (AST/SGOT 30 U/L (12-37); Bilirubin, Total 0.9 mg/dL (0.1-1.0); Blood Urea Nitrogen 110 mg/dL (8-24); Bun/Creatinine Ratio 19.2 (12.0-20.0); CO2, Blood 24 mmol/L (21-32); Calcium, Blood 7.5 mg/dL (8.5-10.1); Chloride, Blood 103 mmol/L (98-108); Creatinine, Blood 5.73 mg/dL (0.60-1.20); Globulin, Blood 3.6 g/dL (2.2-4.0); Glomerular Filtration Rate 10 (60-); Glucose, Blood 76 mg/dL (70-99); Magnesium, Blood 2.4 mg/dL (1.6-2.4); Phosphorus, Blood 6.3 mg/dL (2.5-4.9); Sodium, Blood 138 mmol/L (136-145); Vancomycin, Random 12.3 ug/mL
--- NOTE | 2018-09-20 11:17 | NUR ---
PT LEFT ROOM VIA GURNEY TO PERMICATH PLACEMENT AT THIS TIME.
--- NOTE | 2018-09-20 13:42 | NUR ---
JOHNNA RIOS PER DR FONTAINE
--- NOTE | 2018-09-20 13:53 | NUR ---
PT ARRIVED BACK TO ROOM AT 1347. VS BEING MEASURED AT THIS TIME. MILES BOWDEN RN NOTIFIED OF ARRIVAL. STATES THAT HE WILL BE IN TO INITATE DIALYSIS AT 1415
--- NOTE | 2018-09-20 16:19 | NUR ---
FIRST RUN HEMODIALYSIS TODAY PER DR GALVAN'S ORDER. NEW R CHEST CVC TODAY BY DR HUMPHREY AND PLACEMENT CONFIRMED BY XRAY REPORT POSTED ON CHART. PATIENT AWAKE / ALERT WITH SOME MILD CONFUSION. PT'S SISTER (KIANA) IN ROOM AT START OF TREATMENT. BP LOW /STABLE 80S TO 90S SYSTOLIC. NO VERB COMPLAINT FROM PATIENT. AWAKE/ALERT DURING TREATMENT.
[2018-09-20 17:06] LABS: Vancomycin, Random 15.5 ug/mL
--- NOTE | 2018-09-20 17:25 | NUR ---
SHIFT SUMMARY PT AXO, PLEASANT AND COOPERATIVE WITH CARE THOUGH [place]. PT HAD PERMICATH PLACED THIS SHIFT IN RIJ BY DR HUMPHREY, SEE NOTE. PT THEN HAD DIALYSIS STARTING AT ABOUT 1415. NURSE DISCUSSED PT BP WITH BART JAMES (DIALYSIS NURSE) WHO STATED THAT PT'S BP WAS STABLE POST DIALYSIS, THOUGH HYPOTENSIVE. PT MEDICATED FOR PAIN PER EMAR. FAMILY PRESENT THROUGHOUT THE SHIFT. BED IN LOW POSITION, CALL LIGHT WITHIN REACH. VS OTHERWISE STABLE. PT ON TELE, PACED IN THE 60'S
--- NOTE | 2018-09-21 01:30 | NUR ---
PT HAVING DIFFICULT TIME SLEEPING THIS EVENING. DENIES ANY PAIN OR NEEDS. HELPED PT FIND A TV STATION AND REPOSITIONED HIM IN BED. PT RESTING IN BED WATCHING TV AT THIS TIME.
--- NOTE | 2018-09-21 04:08 | NUR ---
SHIFT SUMMARY PT HAD A DIFFICULT NIGHT THIS EVENING. PT HAS YET TO BE ABLE TO GET TO SLEEP. DENIES PAIN OR DISCOMFORT JUST REPORTS "HAVING A LOT ON HIS MIND" AND THAT HE IS UNSURE WHY HE CAN'T SLEEP. NEW PERMACATH SITE LOOKS GOOD, NO S/S OF INFECTION. SMALL AMOUNT OF BLOOD SURROUNDING THE SITE. PT'S BLOOD PRESSURE SLIGHTLY IMPROVED TONIGHT WITH SYSTOLICS IN THE LOW 100'S TO 110'S. PT CONTINUES TO BE STEADY ON HIS FEET AND AMBULATES WELL WITH SBA AND A WALKER. MEDICATED WITH BEDTIME DOSE OF MIRAPEX FOR RESTLESS LEGS WHICH HAS BEEN WORKING WELL FOR PT. OTHERWISE NO ACUTE CHANGES. VSS. WILL CONTINUE TO MONITOR.
[2018-09-21 04:41] LABS: Hematocrit 33.2 % (37.0-53.0); Hemoglobin 10.3 g/dL (13.5-17.5)
[2018-09-21 05:04] LABS: Albumin, Blood 2.6 g/dL (3.4-5.0); Anion Gap 12 mmol/L (6-16); Blood Urea Nitrogen 86 mg/dL (8-24); Bun/Creatinine Ratio 19.2 (12.0-20.0); CO2, Blood 23 mmol/L (21-32); Calcium, Blood 7.7 mg/dL (8.5-10.1); Chloride, Blood 102 mmol/L (98-108); Creatinine, Blood 4.47 mg/dL (0.60-1.20); Glomerular Filtration Rate 13 (60-); Glucose, Blood 154 mg/dL (70-99); Magnesium, Blood 2.4 mg/dL (1.6-2.4); Phosphorus, Blood 6.2 mg/dL (2.5-4.9); Potassium, Blood 4.6 mmol/L (3.5-5.5); Sodium, Blood 137 mmol/L (136-145)
--- NOTE | 2018-09-21 09:42 | NUR ---
PT LEFT UNIT FOR DIALYSIS AT 0938 WITH LIGIA MALDONADO
--- NOTE | 2018-09-21 12:22 | NUR ---
PT NOW BACK FROM DIALYSIS, CBG CHECKED AND LUNCH GIVEN. PT UP IN CHAIR TO EAT
[2018-09-21 15:05] LABS: Vancomycin, Random 11.9 ug/mL
--- NOTE | 2018-09-21 17:25 | NUR ---
SUMMARY: PT HAS DONE WELL TODAY,NO ACUTE CHANGE. VSS, A/O. HAD DIALYSIS THIS MORNING, STABLE WHEN RETURNED. PT UP IN CHAIR MOST OF THE DAY. WORKED WITH OT/PT. HAS DENIED ANY PAIN AT [place], MOVES WITH SBA AND FWW. NO ACUTE CONCERNS AT THIS TIME.
--- NOTE | 2018-09-21 18:39 | NUR ---
SUMMARY: PT HAS DONE WELL TODAY, NO ACUTE CHANGE. VSS, A/O. HAD DIALYSIS THIS MORNING, STABLE WHEN RETURNED. PT UP IN CHAIR MOST OF THE DAY. WORKED WITH OT/PT. TELE STABLE, PT VOIDING, DENIES SOB. ABD IS SERVERALY DISTENDED AND PER PT SWELLING IN L ARM IS DECREASING, ELEVATED WHEN AT REST. PLAN IS TO CONTINUE DIALYSIS AND SNF PLACEMENT UPON DC.
[2018-09-22 02:06] LABS: HBSAG SCREEN Negative (Negative); HEP A AB, IGM Negative (Negative); HEP B CORE AB, IGM Negative (Negative); HEP C VIRUS AB 0.1 (0.0-0.9)
[2018-09-22 04:58] LABS: Hematocrit 30.9 % (37.0-53.0); Hemoglobin 9.6 g/dL (13.5-17.5)
--- NOTE | 2018-09-22 04:58 | NUR ---
SHIFT SUMMARY- PT. A&O, PLEASANT. IMPULSIVE ATTEMPTED TO GET OUT OF BED W/O ASSISTANCE IS UNSTEADY. PT. IS A 1 ASSIST TO BATHROOM WITH WALKER. BED ALARM TURNED ON FOR THE NIGHT. REINFORCED TO PT. THE USE OF CALL LIGHT FOR BATHROOM ASSIST. EXPIRATORY WHEEZES NOTED AT THE BEGINNING OF SHIFT AND PT. WITH COMPLAINTS OF SOB WITH EXERTION. 02 ON RA 97%. NO APPARENT DISTRESS NOTED. NOTIFIED BRIDAL SALES CONSULTANT TAMRA. ORDER FOR RT TO GIVE A 1X ALBUTEROL TX. PT. SLEPT WELL T/O THE NIGHT. CALL LIGHT WITHIN REACH, BED ALARM ON, AND SIDE RAILS UP X2. WILL CONT TO MONITOR.
[2018-09-22 05:11] LABS: Albumin, Blood 2.6 g/dL (3.4-5.0); Anion Gap 8 mmol/L (6-16); Blood Urea Nitrogen 61 mg/dL (8-24); CO2, Blood 30 mmol/L (21-32); Calcium, Blood 7.4 mg/dL (8.5-10.1); Chloride, Blood 103 mmol/L (98-108); Creatinine, Blood 4.07 mg/dL (0.60-1.20); Glomerular Filtration Rate 15 (60-); Glucose, Blood 106 mg/dL (70-99); Magnesium, Blood 2.4 mg/dL (1.6-2.4); Phosphorus, Blood 4.3 mg/dL (2.5-4.9); Potassium, Blood 3.9 mmol/L (3.5-5.5); Sodium, Blood 141 mmol/L (136-145)
--- NOTE | 2018-09-22 11:01 | NUR ---
0900 PT TO DIALYSIS VIA STAFF TRANSPORT TO BED IN HD ROOM.
[2018-09-22 12:29] LABS: Vancomycin, Random 16.4 ug/mL
--- NOTE | 2018-09-22 17:03 | NUR ---
SUMMARY- PT ALERT AND ORIENTED- MILDLY FORGETFUL AND FUZZY ON DETAILS. HAD DIALYSIS TODAY WITH 2L OFF. PERMACATH UPPER R CHEST WITH OLD BLOOD AT SITE. DRESSING CDI. LUNGS DIM IN THE BASES WITH EXP WHEEZE. MILD SOB WITH EXERTION. UP IN CHAIR MOST OF THE DAY. SISTER IN ROOM VISITING FROM [place]. WORRIED THAT PT ISN'T GETTING THE HELP HE NEEDS FROM GIRLFRIEND SUPPOSIDLY HELPING HIS MEDICATION MANAGEMENT, STATING SHE WAS GIVING HIM THE WRONG DOSE OF MEDICATION AND THAT MAY HAVE CONTRIBUTED TO HIS HOSPITALIZATION. SISTER COURTNEY STATES THE GIRLFRIEND HAS "TAKEN OVER" AND THINKS SHE'S GOING AFTER BROTHERS MONEY, EVEN THOUGH HE HAS NO MONEY, ACCORDING TO SISTER. WROTE ORDER FOR WEATHERIZATION ADMINISTRATOR TO IRON OUT THE SITUATION AND SEE WHAT HELP PT COULD GET AT HOME, OR IF SNF IS WARRANTED FOR A TIME.
--- NOTE | 2018-09-23 03:41 | NUR ---
NOC SHIFT SUMMARY PT PLEASANT AND COOPERATIVE WITH CARE THIS NIGHT. HE IS AAOX4 RESP EVEN AND UNLABORED AT REST. HE HAS GOTTEN UP AND WALKED TO THE RESTROOM WITH HIS FWW. R ARM IS QUITE SWOLLEN FROM CAT SCRATCH. HE STATES IMPROVED THOUGH. ON TELE PACED RATE 60 PER CHRONOMETER TESTER. ON ROOM AIR. PT APPEARS IN NO ACUTE DISTRESS. WILL CONTINUE TO MONITOR.
[2018-09-23 07:27] LABS: Albumin, Blood 2.7 g/dL (3.4-5.0); Anion Gap 6 mmol/L (6-16); Blood Urea Nitrogen 43 mg/dL (8-24); Bun/Creatinine Ratio 11.7 (12.0-20.0); CO2, Blood 34 mmol/L (21-32); Calcium, Blood 7.6 mg/dL (8.5-10.1); Chloride, Blood 101 mmol/L (98-108); Creatinine, Blood 3.69 mg/dL (0.60-1.20); Glomerular Filtration Rate 17 (60-); Glucose, Blood 98 mg/dL (70-99); Magnesium, Blood 2.3 mg/dL (1.6-2.4); Phosphorus, Blood 3.7 mg/dL (2.5-4.9); Potassium, Blood 3.6 mmol/L (3.5-5.5); Sodium, Blood 141 mmol/L (136-145)
--- NOTE | 2018-09-23 12:44 | NUR ---
Initial Visit: Palliative Care Consult for Advanced Care Planning. Pt is A&Ox3 and denies pain at this time. Pt reports 5/7 dyspnea and worsens with exertion. He also reports 6/7 anxiety due to dyspnea and concerns with his health. Pt denies nausea/vomiting at this time. Pt's sister Sarahi is present during visit. Engaged in therapeutic conversation regarding advanced care planning. Pt lives in a mobile home and girlfriend recently moved in with him. Pt states he does not practice any particular zoroastrianism. Listened as Sarahi expresses concerns regarding Pt's ability to care for self. Sarahi reports Pt needs assistance with ambulation and would benefit from FWW and standbye assist for safety. She also reports Pt needs assistance with bathing and dressing. Sarahi reports Pt's girlfriend struggles with her own health issues and is not capable of assisting with Pt's needs. Sarahi and Pt both express this issue is their biggest concern. Instructed Pt and family these concerns will be relayed to field care advocate. Educated Pt on disease process and the importance to have routine conversations with PCP in order to plan accordingly. Discussion was made regarding advanced directive and Pt expresses interest. Educated Pt and Sarahi on each section to complete. Educated on life sustaining measures including risk factors. Pt and Sarahi report they will discuss further before completing AD. Pt at this time is struggling to keep his eyes open and this RN ended visit. No other concerns reported at this time. Spoke with field care advocate Gladys and [facility] consultant Karen regarding concerns for caregivers in the home. Palliative Care will remain available.
--- NOTE | 2018-09-23 16:01 | NUR ---
[facility] initial visit: Mr. Gomes has had numerous visitors during his hospitalization. He appears to be well loved. He is pleasant and welcoming of conversation. He has two concerns: He is afraid of another sleepless night and states he feels exhausted. Second: He is unsure he can continue living with his SO and her "evil" cat. He is often repetative but smiles easily. He is not mandaeism, but responded well to encouragement and affirmation of obvious love. He is hoping to go to rehab soon and looks forward to return to baseline. He beleives dialysis is temporary. I will remain available.
--- NOTE | 2018-09-23 18:35 | NUR ---
SHIFT SUMMARY TIM HAD HD TODAY VIA PERMACATH. TELE SHOWS PACED RHYTHM. SBA TO BR, CALLS APPROPRIATELY. FAMILY VISITED, TO SNF TOMORROW PER CASE MANAGEMENT. I CALLED DR GABRIEL AND ASKED FOR SLEEP MED FOR PT, HE SLEPT VERY POORLY LAST NIGHT. L ARM VERY SWOLLEN BUT PT STATES IT IS MUCH BETTER, SLIGHT LUE PAIN CONTROLLED WITH TYLENOL AND REPOSITIONING. CALL LIGHT IN REACH, [facility]
[2018-09-24 04:43] LABS: Hematocrit 34.2 % (37.0-53.0); Hemoglobin 10.6 g/dL (13.5-17.5)
[2018-09-24 04:59] LABS: Albumin, Blood 2.7 g/dL (3.4-5.0); Anion Gap 8 mmol/L (6-16); Blood Urea Nitrogen 43 mg/dL (8-24); Bun/Creatinine Ratio 10.1 (12.0-20.0); CO2, Blood 30 mmol/L (21-32); Calcium, Blood 7.7 mg/dL (8.5-10.1); Chloride, Blood 101 mmol/L (98-108); Creatinine, Blood 4.27 mg/dL (0.60-1.20); Glomerular Filtration Rate 14 (60-); Glucose, Blood 108 mg/dL (70-99); Magnesium, Blood 2.2 mg/dL (1.6-2.4); Phosphorus, Blood 3.7 mg/dL (2.5-4.9); Potassium, Blood 4.1 mmol/L (3.5-5.5); Sodium, Blood 139 mmol/L (136-145)
[2018-09-24 12:17] LABS: Vancomycin, Random 12.3 ug/mL
--- NOTE | 2018-09-24 17:24 | NUR ---
PATIENT IS ALERT AN ORIENTED AND COOPERATIVE WITH CARE. NO COMPLAINTS OF PAIN TODAY. SBA TO THE BATHROOM WITH FWW AND GAIT BELT, UNSTEADY AT TIMES. FAMILY HAS BEEN AT THE BEDSIDE ALL THROUGHOUT THE DAY. PATIENT HAS A LITTLE APPETITE ACCORDING TO HIS SISTER.HE WENT TO DIALYSIS TODAY. LOOKS LIKE THE PLAN IS TO WAIT FOR AN OPEN BED AT [facility] AND CHAIR TIME AT [facility] BEFORE DISCHARGE FROM [facility]. ACCORDING TO CARE MANAGEMENT NOTES, A BED AT IS NOT EXPECTED TO BE OPEN UNTIL AFTER THIS WEEKEND. WILL CONTINUE TO MONITOR.
[2018-09-25 05:25] LABS: Hematocrit 34.5 % (37.0-53.0); Hemoglobin 10.6 g/dL (13.5-17.5)
[2018-09-25 05:46] LABS: Albumin, Blood 2.7 g/dL (3.4-5.0); Anion Gap 4 mmol/L (6-16); Blood Urea Nitrogen 31 mg/dL (8-24); Bun/Creatinine Ratio 8.4 (12.0-20.0); CO2, Blood 37 mmol/L (21-32); Chloride, Blood 99 mmol/L (98-108); Creatinine, Blood 3.68 mg/dL (0.60-1.20); Glomerular Filtration Rate 17 (60-); Glucose, Blood 105 mg/dL (70-99); Magnesium, Blood 2.1 mg/dL (1.6-2.4); Phosphorus, Blood 2.8 mg/dL (2.5-4.9); Sodium, Blood 140 mmol/L (136-145)
--- NOTE | 2018-09-25 06:30 | NUR ---
SHIFT SUMMARY PATIENT IS ALERT AND ORIENTED. USES URINAL AT BEDSIDE. HAD RESTLESS LEGS AT BEGINING OF SHIFT. SLEPT OFF AND ON THROUGHOUT THE NIGHT. NO ACUTE CHANGES THROUGHOUT NIGHT. VITALS STABLE.
[2018-09-25 12:34] LABS: Vancomycin, Random 11.2 ug/mL
--- NOTE | 2018-09-25 16:56 | NUR ---
[facility] PATIENT IS DRESSED AND READY TO DISCHARGE. PATIENT'S GIRLFRIEND IS AT THE BEDSDIE. NO COMPLAINTS. WILL CONTINUE TO MONITOR.
== END 2018-09-25 17:53 | DRG 682 ==
LOC: ER 20:45 → MEDS 23:42 → ENPENDDIS 09-25 15:46 → MEDS 09-25 17:53
PROVIDERS: Family Medicine; Internal Medicine Nephrology; Physician Assistant; Surgery; ADMIT Hospitalist
PROC: B513ZZA Fluoroscopy of Right Jugular Veins, Guidance (ICD-10-PCS; 2018-09-20)
PROC: 5A1D70Z Performance of Urinary Filtration, Intermittent, Less than 6 Hours Per Day (ICD-10-PCS; 2018-09-20)
PROC: 05HM33Z Insertion of Infusion Device into Right Internal Jugular Vein, Percutaneous Approach (ICD-10-PCS; principal; 2018-09-20 11:45)
PROC: 5A1D70Z Performance of Urinary Filtration, Intermittent, Less than 6 Hours Per Day (ICD-10-PCS; 2018-09-21)
PROC: 5A1D70Z Performance of Urinary Filtration, Intermittent, Less than 6 Hours Per Day (ICD-10-PCS; 2018-09-22)
DX: N17.9 Acute kidney failure, unspecified (principal); G92 Toxic encephalopathy; I50.33 Acute on chronic diastolic (congestive) heart failure; I13.2 Hypertensive heart and chronic kidney disease with heart failure and with stage 5 chronic kidney disease, or end stage renal disease; L03.114 Cellulitis of left upper limb; A28.1 Cat-scratch disease; Q21.1 Atrial septal defect; E11.22 Type 2 diabetes mellitus with diabetic chronic kidney disease; Z99.2 Dependence on renal dialysis; E11.65 Type 2 diabetes mellitus with hyperglycemia; J45.909 Unspecified asthma, uncomplicated; D63.1 Anemia in chronic kidney disease; I35.0 Nonrheumatic aortic (valve) stenosis; Z95.0 Presence of cardiac pacemaker; Z86.73 Personal history of transient ischemic attack (TIA), and cerebral infarction without residual deficits; G62.9 Polyneuropathy, unspecified; I25.10 Atherosclerotic heart disease of native coronary artery without angina pectoris; Z95.1 Presence of aortocoronary bypass graft; E83.39 Other disorders of phosphorus metabolism; I48.2 Chronic atrial fibrillation; J44.9 Chronic obstructive pulmonary disease, unspecified; N25.81 Secondary hyperparathyroidism of renal origin; E88.09 Other disorders of plasma-protein metabolism, not elsewhere classified; Z79.4 Long term (current) use of insulin; I95.9 Hypotension, unspecified; N18.6 End stage renal disease
CPT/HCPCS: 36415; 36416; 73200; 76770; 80048; 80053; 80069; 80074; 80202; 82947; 83605; 83735; 83880; 84100; 84145; 84484; 85014; 85018; 85025; 85610; 85730; 86317; 87040; 93005; 93010; 93971; 94640; 94760; 96365; 96367; 96375; 97110; 97116; 97162; 97166; 97530; 97535; 99285-25; A9270; C1750; J0456; J0881; J1100; J1644; J1956; J2405; J2704; J3010; J3370; J7030; J7050

== ENCOUNTER 2018-11-01 11:15 | Emergency (ER) | payer OTHER ==
[~2018-11-01] VITALS: Ht 170.2 cm; Wt 83.9 kg
[2018-11-01] MEDS ORDERED: Monodox100 MG PO (12:01)
[2018-11-01] MEDS ORDERED: MUPIROCIN1 GM TOP (12:02)
== END 2018-11-01 12:28 | disposition home or self-care (01) ==
LOC: ER 11:15
DX: L03.211 Cellulitis of face (principal); Z88.0 Allergy status to penicillin; Z88.1 Allergy status to other antibiotic agents; Z79.899 Other long term (current) drug therapy; Z79.4 Long term (current) use of insulin; E11.9 Type 2 diabetes mellitus without complications; I48.91 Unspecified atrial fibrillation; J45.909 Unspecified asthma, uncomplicated
CPT/HCPCS: 99283

== ENCOUNTER 2020-01-15 13:55 | Emergency (ER) | payer OTHER ==
[~2020-01-15] VITALS: Ht 170.2 cm; Wt 95.2 kg
[~2020-01-15 13:55] MED LIST changes: +BASAGLAR K100 UNIT/1 SC; +MUPIROCIN1 GM TOP; +Monodox100 MG PO
[2020-01-15] MEDS ORDERED: Vibramycin100 MG PO (15:17)
== END 2020-01-15 15:35 | disposition home or self-care (01) ==
LOC: ER 13:55
DX: L08.9 Local infection of the skin and subcutaneous tissue, unspecified (principal); E11.9 Type 2 diabetes mellitus without complications; I48.91 Unspecified atrial fibrillation; J45.909 Unspecified asthma, uncomplicated; Z88.1 Allergy status to other antibiotic agents; Z88.0 Allergy status to penicillin; Z88.8 Allergy status to other drugs, medicaments and biological substances; Z79.4 Long term (current) use of insulin; Z79.02 Long term (current) use of antithrombotics/antiplatelets; Z79.01 Long term (current) use of anticoagulants; Z79.899 Other long term (current) drug therapy
CPT/HCPCS: 99282

== ENCOUNTER 2020-02-29 00:11 | Day surgery (SDC) | payer OTHER ==
[~2020-02-29 00:11] MED LIST changes: +Vibramycin100 MG PO
== END 2020-02-29 12:05 | disposition home or self-care (01) ==
LOC: ATC 00:11
DX: I12.9 Hypertensive chronic kidney disease with stage 1 through stage 4 chronic kidney disease, or unspecified chronic kidney disease (principal); E11.42 Type 2 diabetes mellitus with diabetic polyneuropathy; E11.22 Type 2 diabetes mellitus with diabetic chronic kidney disease; N18.30 Chronic kidney disease, stage 3 unspecified; D63.1 Anemia in chronic kidney disease; Z88.0 Allergy status to penicillin; Z88.1 Allergy status to other antibiotic agents; Z88.8 Allergy status to other drugs, medicaments and biological substances; C67.4 Malignant neoplasm of posterior wall of bladder; Z79.01 Long term (current) use of anticoagulants; Z79.899 Other long term (current) drug therapy; Z79.02 Long term (current) use of antithrombotics/antiplatelets; Z79.4 Long term (current) use of insulin
CPT/HCPCS: 36415; 36430; 86850; 86900; 86901; 86923; J7050; P9016

== ENCOUNTER 2020-04-08 12:33 | Emergency (ER) | payer OTHER ==
[~2020-04-08] VITALS: Ht 157.5 cm; Wt 93.0 kg
[2020-04-08] MEDS ORDERED: Norco 5-325 Ta1 EACH PO (13:28)
== END 2020-04-08 13:41 | disposition home or self-care (01) ==
LOC: ER 12:33
DX: M54.41 Lumbago with sciatica, right side (principal); Z79.4 Long term (current) use of insulin; Z79.899 Other long term (current) drug therapy; Z79.01 Long term (current) use of anticoagulants
CPT/HCPCS: 99283

== ENCOUNTER 2020-04-21 13:45 | Emergency (ER) | payer OTHER ==
[~2020-04-21] VITALS: Ht 172.7 cm; Wt 94.3 kg
[~2020-04-21 13:45] MED LIST changes: +Norco 5-325 Ta1 EACH PO
[2020-04-21 16:07] LABS: Appearance, Urine Clear (Clear); Bilirubin, Urine Neg (Neg); Blood, Urine 5+ (Neg); Color, Urine Yellow (P-Yellow); Glucose Qualitative, Urine Neg (Neg); Ketones, Urine Neg (Neg); Leukocyte Esterase, Urine 2+ (Neg); Nitrite, Urine Neg (Neg); Protein, Urine 2+ (Neg); Source, Urine Voided; Specific Gravity, Urine 1.005 (1.003-1.022); Urobilinogen, Urine NORM (Normal)
[2020-04-21 16:29] LABS: Red Blood Cells, Urine 25-50 /hpf (0-2); White Blood Cells, Urine 25-50 /hpf (0-5)
[2020-04-21 16:30] LABS: Bacteria Mod /hpf; Hyaline Casts 0-2 /lpf (0-2); Squamous Epithelial Cells Few /hpf (Few)
== END 2020-04-21 15:48 | disposition home or self-care (01) ==
LOC: ER 13:45
PROVIDERS: Emergency Medicine
DX: R33.9 Retention of urine, unspecified (principal); E11.9 Type 2 diabetes mellitus without complications; I48.91 Unspecified atrial fibrillation; J45.909 Unspecified asthma, uncomplicated; Z79.4 Long term (current) use of insulin; Z79.01 Long term (current) use of anticoagulants; Z79.899 Other long term (current) drug therapy; Z88.1 Allergy status to other antibiotic agents; Z88.0 Allergy status to penicillin; Z88.8 Allergy status to other drugs, medicaments and biological substances
CPT/HCPCS: 51798; 81001; 87086; 99283-25

== ENCOUNTER → 2020-06-27 | Outpatient (CLI) | payer OTHER | LOC: LAB SHORT 17:00 → LAB 17:00 | DX: N18.30 Chronic kidney disease, stage 3 unspecified (principal); D63.8 Anemia in other chronic diseases classified elsewhere; Z88.0 Allergy status to penicillin; Z88.1 Allergy status to other antibiotic agents; Z88.8 Allergy status to other drugs, medicaments and biological substances | CPT/HCPCS: 82270 ==

== ENCOUNTER 2020-08-04 20:31 | Emergency (ER) | payer OTHER ==
[~2020-08-04] VITALS: Ht 172.7 cm; Wt 99.8 kg
== END 2020-08-04 21:48 | disposition home or self-care (01) ==
LOC: ER 20:31
DX: T83.091A Other mechanical complication of indwelling urethral catheter, initial encounter (principal); E11.9 Type 2 diabetes mellitus without complications; Z88.0 Allergy status to penicillin; Z88.1 Allergy status to other antibiotic agents; Z88.8 Allergy status to other drugs, medicaments and biological substances; Z79.899 Other long term (current) drug therapy; Z79.82 Long term (current) use of aspirin; Z95.0 Presence of cardiac pacemaker; Z98.890 Other specified postprocedural states
CPT/HCPCS: 51700; 51798; 99282-25

== ENCOUNTER 2020-08-15 12:19 | Emergency (ER) | payer OTHER ==
[~2020-08-15] VITALS: Ht 172.7 cm; Wt 99.8 kg
[2020-08-15 12:58] LABS: BASOPHILS ABSOLUTE AUTO 0.03 K/mm3 (0.00-0.23); BASOPHILS PERCENT AUTO 0 % (0-2); EOSINOPHILS ABSOLUTE AUTO 0.36 K/mm3 (0.00-0.68); EOSINOPHILS PERCENT AUTO 4 % (0-6); Hematocrit 27.2 % (37.0-53.0); Hemoglobin 8.3 g/dL (13.5-17.5); IMMATURE GRAN ABSOLUTE AUTO 0.05 K/mm3 (0.00-0.10); IMMATURE GRAN PERCENT AUTO 1 % (0-1); LYMPHOCYTES ABSOLUTE AUTO 1.82 K/mm3 (0.84-5.20); LYMPHOCYTES PERCENT AUTO 19 % (21-46); MONOCYTES ABSOLUTE AUTO 0.54 K/mm3 (0.16-1.47); MONOCYTES PERCENT AUTO 6 % (4-13); Mean Corpuscular HGB 28.4 pg (26.0-34.0); Mean Corpuscular HGB Conc 30.5 g/dL (31.5-36.5); Mean Corpuscular Volume 93 fL (80-100); Mean Platelet Volume 10.3 fL (9.1-12.4); NEUTROPHILS ABSOLUTE AUTO 6.98 K/mm3 (1.96-9.15); NEUTROPHILS PERCENT AUTO 71 % (41-73); Platelet Count 223 K/mm3 (150-400); RDW Coefficient Variation 16.9 % (11.7-14.2); RDW Standard Deviation 57.9 fL (35.1-46.3); Red Blood Cell Count 2.92 M/mm3 (4.30-5.90); White Blood Cell Count 9.78 K/mm3 (4.00-11.30)
[2020-08-15 13:14] LABS: International Normalized Ratio 1.08; Prothrombin Time Results 11.6 Sec (9.7-11.5)
[2020-08-15 13:19] LABS: Alanine Aminotransfer (ALT/SGP 15 U/L (12-78); Albumin, Blood 2.9 g/dL (3.4-5.0); Albumin/Globulin Ratio 0.7 (0.8-1.8); Alk Phos 117 U/L (50-136); Anion Gap 7 mmol/L (6-16); Aspartate Aminotrans (AST/SGOT 15 U/L (12-37); Bilirubin, Total 0.4 mg/dL (0.1-1.0); Blood Urea Nitrogen 46 mg/dL (8-24); Bun/Creatinine Ratio 9.5 (12.0-20.0); CO2, Blood 29 mmol/L (21-32); Calcium, Blood 8.3 mg/dL (8.5-10.1); Chloride, Blood 99 mmol/L (98-108); Creatinine, Blood 4.84 mg/dL (0.60-1.20); Globulin, Blood 4.1 g/dL (2.2-4.0); Glomerular Filtration Rate 12 (60-); Glucose, Blood 122 mg/dL (70-99); Potassium, Blood 4.2 mmol/L (3.5-5.5); Sodium, Blood 135 mmol/L (136-145); Troponin I <0.015 ng/mL (0.000-0.040)
== END 2020-08-15 15:05 | disposition home or self-care (01) ==
LOC: ER 12:19
PROVIDERS: Physician Assistant
DX: E11.22 Type 2 diabetes mellitus with diabetic chronic kidney disease (principal); N18.9 Chronic kidney disease, unspecified; E11.42 Type 2 diabetes mellitus with diabetic polyneuropathy; I48.91 Unspecified atrial fibrillation; Z79.01 Long term (current) use of anticoagulants; Z79.4 Long term (current) use of insulin; Z79.899 Other long term (current) drug therapy
CPT/HCPCS: 36415; 71046; 80053; 83880; 84484; 85025; 85610; 93005; 93010; 99284-25

== ENCOUNTER → 2020-08-18 | Outpatient (CLI) | payer OTHER ==
[~2020-08-18] MED LIST changes: +CEFD300 PO; +INSULANI SC; +Lopressor 25 mg25 MG PO
[2020-08-19 07:10] LABS: HBSAG SCREEN Negative (Negative); HEP A AB, IGM Negative (Negative); HEP B CORE AB, IGM Negative (Negative); HEP C VIRUS AB <0.1 (0.0-0.9)
== END | disposition home or self-care (01) ==
LOC: LAB SHORT 10:34 → LAB 10:34
PROVIDERS: Internal Medicine Nephrology
DX: R94.5 Abnormal results of liver function studies (principal); R94.6 Abnormal results of thyroid function studies
CPT/HCPCS: 36415; 80074

== ENCOUNTER 2020-08-21 07:02 | Day surgery (SDC) | payer OTHER ==
[~2020-08-21] VITALS: Ht 172.7 cm; Wt 100.0 kg
[~2020-08-21 07:02] MED LIST changes: -CEFD300 PO; -INSULANI SC; -Lopressor 25 mg25 MG PO
--- NOTE | 2020-08-21 08:58 | NUR ---
PT ARRIVED BACK TO RECOVERY ROOM IN RECLINER. RACW PERMCATH SITE SOFT NON-TENDER WITH NO HEMATOMA, NO BLEEDING AND DRESSING IN PLACE. PT DENIES CHEST PAIN. PT IS DRINKING COFFEE AND EATING BREAKFAST. CALL LIGHT IN REACH.
--- NOTE | 2020-08-21 09:36 | NUR ---
DISCHARGE INSTRUCTIONS REVIEWED ALL QUESTIONS ANSWERED. NO CHANGES TO [facility] CATH SITE.
--- NOTE | 2020-08-21 09:59 | NUR ---
NO CHANGES TO RACW PERM CATH SITE. 20 G IV DISCONTINUED FROM LEFT AC WITH INTACT CANNULA. PT ESCORTED OUT VIA WHEELCHAIR ESCORT.
== END 2020-08-21 10:00 | disposition home or self-care (01) ==
LOC: MHTC 07:02
DX: N18.6 End stage renal disease (principal); I50.32 Chronic diastolic (congestive) heart failure; E11.22 Type 2 diabetes mellitus with diabetic chronic kidney disease; E11.42 Type 2 diabetes mellitus with diabetic polyneuropathy; I48.91 Unspecified atrial fibrillation; J45.909 Unspecified asthma, uncomplicated; N40.0 Benign prostatic hyperplasia without lower urinary tract symptoms; Z88.0 Allergy status to penicillin; Z86.73 Personal history of transient ischemic attack (TIA), and cerebral infarction without residual deficits; Z79.899 Other long term (current) drug therapy; Z95.828 Presence of other vascular implants and grafts; E11.9 Type 2 diabetes mellitus without complications
CPT/HCPCS: 36415; 36558; 76937; 77001; 80047; 82947; 85014; 99152; 99283; C1750; C1769; C1894; J1644; J2250; J3010; J7030; J7040; J7050

== ENCOUNTER 2020-09-22 20:31 | Inpatient (IN) | payer OTHER ==
[~2020-09-22] VITALS: Ht 172.7 cm; Wt 98.7 kg
[2020-09-22 21:19] LABS: BASOPHILS ABSOLUTE AUTO 0.05 K/mm3 (0.00-0.23); BASOPHILS PERCENT AUTO 0 % (0-2); EOSINOPHILS ABSOLUTE AUTO 0.21 K/mm3 (0.00-0.68); EOSINOPHILS PERCENT AUTO 2 % (0-6); Hemoglobin 10.8 g/dL (13.5-17.5); IMMATURE GRAN ABSOLUTE AUTO 0.07 K/mm3 (0.00-0.10); IMMATURE GRAN PERCENT AUTO 1 % (0-1); LYMPHOCYTES ABSOLUTE AUTO 0.73 K/mm3 (0.84-5.20); LYMPHOCYTES PERCENT AUTO 6 % (21-46); MONOCYTES ABSOLUTE AUTO 0.57 K/mm3 (0.16-1.47); MONOCYTES PERCENT AUTO 5 % (4-13); Mean Corpuscular HGB 27.7 pg (26.0-34.0); Mean Corpuscular HGB Conc 30.9 g/dL (31.5-36.5); Mean Corpuscular Volume 90 fL (80-100); Mean Platelet Volume 10.5 fL (9.1-12.4); NEUTROPHILS PERCENT AUTO 86 % (41-73); Platelet Count 179 K/mm3 (150-400); RDW Coefficient Variation 14.3 % (11.7-14.2); RDW Standard Deviation 46.7 fL (35.1-46.3); White Blood Cell Count 11.43 K/mm3 (4.00-11.30)
[2020-09-22 21:56] LABS: Alanine Aminotransfer (ALT/SGP 15 U/L (12-78); Albumin, Blood 3.2 g/dL (3.4-5.0); Albumin/Globulin Ratio 0.7 (0.8-1.8); Alk Phos 123 U/L (50-136); Anion Gap 4 mmol/L (6-16); Aspartate Aminotrans (AST/SGOT 17 U/L (12-37); Bilirubin, Total 0.4 mg/dL (0.1-1.0); Blood Urea Nitrogen 27 mg/dL (8-24); Bun/Creatinine Ratio 9.7 (12.0-20.0); CO2, Blood 30 mmol/L (21-32); Calcium, Blood 9.2 mg/dL (8.5-10.1); Chloride, Blood 102 mmol/L (98-108); Creatinine, Blood 2.79 mg/dL (0.60-1.20); Globulin, Blood 4.9 g/dL (2.2-4.0); Glomerular Filtration Rate 22 (60-); Glucose, Blood 164 mg/dL (70-99); Potassium, Blood 4.4 mmol/L (3.5-5.5); Sodium, Blood 136 mmol/L (136-145); Total Protein, Blood 8.1 g/dL (6.4-8.2)
[2020-09-23 01:53] LABS: Magnesium, Blood 2.5 mg/dL (1.6-2.4); Troponin I <0.015 ng/mL (0.000-0.040)
[2020-09-23 05:18] LABS: Source, Urine Voided
[2020-09-23 05:22] LABS: Appearance, Urine Cloudy (Clear); Bilirubin, Urine Neg (Neg); Blood, Urine 5+ (Neg); Color, Urine Brown (P-Yellow); Glucose Qualitative, Urine Neg (Neg); Ketones, Urine Neg (Neg); Leukocyte Esterase, Urine 3+ (Neg); Nitrite, Urine Neg (Neg); Protein, Urine 4+ (Neg); Specific Gravity, Urine 1.015 (1.003-1.022); Urobilinogen, Urine NORM (Normal)
[2020-09-23 05:36] LABS: Bacteria Many /hpf; Red Blood Cells, Urine TNTC /hpf (0-2); Squamous Epithelial Cells Not Seen /hpf (Few); White Blood Cells, Urine TNTC /hpf (0-5)
[2020-09-23] MEDS ORDERED: INSULANI SC (16:47)
[2020-09-23] MEDS ORDERED: CLOP75 PO (16:52)
[2020-09-23] MEDS ORDERED: GABA300 PO (16:53)
[2020-09-23] MEDS ORDERED: Lopressor 25 mg25 MG PO (16:56)
--- NOTE | 2020-09-23 17:44 | NUR ---
PT AOX3 WITH MILD CONFUSION. PT HAS BEEN RESTING IN BED. NO DISTRESS NOTED AT THIS TIME. PT HAS BEEN AFEBRILE AND DENIES ANY PAIN AT THIS TIME. PT HAS CALL LIGHT WITHIN REACH. PT'S LAS BP WAS 91/[address] JARRELL WAS NOTIFIED. PT IS NOT SYMTOMATIC AT THIS TIME AND DOING WELL. WESLY ORDERED PT TO JUST BE MONITORED AT THIS TIME. WILL CONTINUE TO MONITOR.
[2020-09-24 04:32] LABS: BASOPHILS ABSOLUTE AUTO 0.02 K/mm3 (0.00-0.23); BASOPHILS PERCENT AUTO 0 % (0-2); EOSINOPHILS ABSOLUTE AUTO 0.08 K/mm3 (0.00-0.68); EOSINOPHILS PERCENT AUTO 1 % (0-6); Hematocrit 29.5 % (37.0-53.0); Hemoglobin 9.2 g/dL (13.5-17.5); IMMATURE GRAN ABSOLUTE AUTO 0.03 K/mm3 (0.00-0.10); IMMATURE GRAN PERCENT AUTO 0 % (0-1); LYMPHOCYTES ABSOLUTE AUTO 1.34 K/mm3 (0.84-5.20); LYMPHOCYTES PERCENT AUTO 17 % (21-46); MONOCYTES ABSOLUTE AUTO 0.39 K/mm3 (0.16-1.47); MONOCYTES PERCENT AUTO 5 % (4-13); Mean Corpuscular HGB 27.7 pg (26.0-34.0); Mean Corpuscular HGB Conc 31.2 g/dL (31.5-36.5); Mean Corpuscular Volume 89 fL (80-100); Mean Platelet Volume 10.7 fL (9.1-12.4); NEUTROPHILS ABSOLUTE AUTO 5.89 K/mm3 (1.96-9.15); NEUTROPHILS PERCENT AUTO 76 % (41-73); Platelet Count 129 K/mm3 (150-400); RDW Coefficient Variation 14.7 % (11.7-14.2); RDW Standard Deviation 47.9 fL (35.1-46.3); Red Blood Cell Count 3.32 M/mm3 (4.30-5.90); White Blood Cell Count 7.75 K/mm3 (4.00-11.30)
--- NOTE | 2020-09-24 04:43 | NUR ---
COTTRELL BLOWER SUMMARY PT A/O X3 WITH FORGETFULNESS. SLEPT WELL TONIGHT. DENIES PAIN, NAUSEA, SOB. ROOM AIR SATTING IN THE HIGH 90'S. AMBULATES TO THE BSC WITH 1-2 ASSIST. VSS. NO ACUTE CHANGES. BED ALARM ON, CALL LIGHT WITHIN REACH, WILL CONTINUE TO MONITOR.
[2020-09-24 04:56] LABS: Albumin, Blood 2.5 g/dL (3.4-5.0); Albumin/Globulin Ratio 0.6 (0.8-1.8); Bilirubin, Total 0.6 mg/dL (0.1-1.0); Bun/Creatinine Ratio 11.7 (12.0-20.0); Calcium, Blood 7.6 mg/dL (8.5-10.1); Creatinine, Blood 2.98 mg/dL (0.60-1.20); Globulin, Blood 4.1 g/dL (2.2-4.0); Potassium, Blood 4.2 mmol/L (3.5-5.5); Total Protein, Blood 6.6 g/dL (6.4-8.2)
--- NOTE | 2020-09-25 05:35 | NUR ---
SENIOR NETWORK SECURITY ARCHITECT SUMMARY PT A/O X3-4. SLEPT WELL TONIGHT. DENIES PAIN, NAUSEA. SOB WITH EXERTION. ABLE TO MAKE NEEDS KNOWN AND USES CALL LIGHT APPROPRIATELY. AMBULATES TO THE BATHROOM WITH 1 ASSIST GAITBELT AND FWW. CONTIENT. VSS, NO ACUTE CHANGES. BED ALARM ON, WILL CONTINUE TO MONITOR.
[2020-09-25] MEDS ORDERED: CEFD300 PO (15:27)
--- NOTE | 2020-09-25 17:01 | NUR ---
PATIENT WAS DISCHARGED WITH ALL PAPERWORK REVIEWED. EDUCATIONAL MATERIAL WAS REVIEWED AND EXPLAINED TO PATIENT. PATIENT WAS TAKEN OUT VIA WHEELCHAIR BY MYSELF AND TAKEN HOME BY [facility]. PATIENT WAS ALERT AND ORIENTED X3 AND REPORTED NO PAIN UPON DISCHARGE.
--- NOTE | 2020-09-25 17:53 | NUR ---
PLEASE REFER TO STUDENT NOTE FOR DISCHARGE.
== END 2020-09-25 15:45 | disposition home or self-care (01) | DRG 871 ==
LOC: ER 20:31 → ERHOLD 09-23 07:36 → MEDS 09-23 07:36
PROVIDERS: Physician Assistant; ADMIT Internal Medicine
DX: A41.9 Sepsis, unspecified organism (principal); G93.41 Metabolic encephalopathy; N39.0 Urinary tract infection, site not specified; I50.32 Chronic diastolic (congestive) heart failure; I13.0 Hypertensive heart and chronic kidney disease with heart failure and stage 1 through stage 4 chronic kidney disease, or unspecified chronic kidney disease; E87.2 Acidosis; I48.20 Chronic atrial fibrillation, unspecified; J45.909 Unspecified asthma, uncomplicated; C67.9 Malignant neoplasm of bladder, unspecified; E11.22 Type 2 diabetes mellitus with diabetic chronic kidney disease; E11.42 Type 2 diabetes mellitus with diabetic polyneuropathy; D63.1 Anemia in chronic kidney disease; E78.5 Hyperlipidemia, unspecified; R65.20 Severe sepsis without septic shock; G25.81 Restless legs syndrome; N40.0 Benign prostatic hyperplasia without lower urinary tract symptoms; E66.9 Obesity, unspecified; M10.9 Gout, unspecified; N18.30 Chronic kidney disease, stage 3 unspecified; E86.0 Dehydration; Z95.0 Presence of cardiac pacemaker; Z95.2 Presence of prosthetic heart valve; Z95.828 Presence of other vascular implants and grafts; Z88.1 Allergy status to other antibiotic agents; Z88.0 Allergy status to penicillin; Z88.8 Allergy status to other drugs, medicaments and biological substances; Z79.01 Long term (current) use of anticoagulants; Z79.899 Other long term (current) drug therapy; Z79.4 Long term (current) use of insulin; Z92.21 Personal history of antineoplastic chemotherapy; Z86.73 Personal history of transient ischemic attack (TIA), and cerebral infarction without residual deficits; Z68.33 Body mass index [BMI] 33.0-33.9, adult
CPT/HCPCS: 36415; 51798; 71046; 80053; 81001; 82947; 83605; 83690; 83735; 83880; 84145; 84484; 85025; 87040; 87086; 93005; 93010; 96360; 96361; 99285-25; A9270; J0696; J1650; J1956; J7030

== ENCOUNTER → 2020-10-02 | Outpatient (CLI) | payer OTHER ==
[~2020-10-02] MED LIST changes: +CEFD300 PO; +INSULANI SC; +Lopressor 25 mg25 MG PO
[2020-10-02 19:49] LABS: BASOPHILS ABSOLUTE AUTO 0.03 K/mm3 (0.00-0.23); BASOPHILS PERCENT AUTO 0 % (0-2); EOSINOPHILS ABSOLUTE AUTO 0.35 K/mm3 (0.00-0.68); EOSINOPHILS PERCENT AUTO 5 % (0-6); Hematocrit 34.4 % (37.0-53.0); Hemoglobin 10.3 g/dL (13.5-17.5); IMMATURE GRAN ABSOLUTE AUTO 0.03 K/mm3 (0.00-0.10); IMMATURE GRAN PERCENT AUTO 0 % (0-1); LYMPHOCYTES ABSOLUTE AUTO 1.53 K/mm3 (0.84-5.20); LYMPHOCYTES PERCENT AUTO 21 % (21-46); MONOCYTES ABSOLUTE AUTO 0.52 K/mm3 (0.16-1.47); MONOCYTES PERCENT AUTO 7 % (4-13); Mean Corpuscular HGB 27.5 pg (26.0-34.0); Mean Corpuscular HGB Conc 29.9 g/dL (31.5-36.5); Mean Corpuscular Volume 92 fL (80-100); Mean Platelet Volume 10.3 fL (9.1-12.4); NEUTROPHILS ABSOLUTE AUTO 4.96 K/mm3 (1.96-9.15); NEUTROPHILS PERCENT AUTO 67 % (41-73); Platelet Count 188 K/mm3 (150-400); RDW Coefficient Variation 15.1 % (11.7-14.2); Red Blood Cell Count 3.74 M/mm3 (4.30-5.90); White Blood Cell Count 7.42 K/mm3 (4.00-11.30)
== END | disposition home or self-care (01) ==
LOC: LAB SHORT 15:00 → LAB 15:00
PROVIDERS: Internal Medicine Hematology & Oncology
DX: E11.42 Type 2 diabetes mellitus with diabetic polyneuropathy (principal); E11.22 Type 2 diabetes mellitus with diabetic chronic kidney disease; I12.9 Hypertensive chronic kidney disease with stage 1 through stage 4 chronic kidney disease, or unspecified chronic kidney disease; N18.30 Chronic kidney disease, stage 3 unspecified; D63.8 Anemia in other chronic diseases classified elsewhere; D50.9 Iron deficiency anemia, unspecified; I25.10 Atherosclerotic heart disease of native coronary artery without angina pectoris
CPT/HCPCS: 85025

== ENCOUNTER 2020-10-06 20:50 | Inpatient (IN) | payer MEDICARE, OTHER ==
[~2020-10-06] VITALS: Ht 172.7 cm; Wt 117.9 kg
[2020-10-06 22:00] LABS: BASOPHILS ABSOLUTE AUTO 0.02 K/mm3 (0.00-0.23); BASOPHILS PERCENT AUTO 0 % (0-2); EOSINOPHILS ABSOLUTE AUTO 0.18 K/mm3 (0.00-0.68); EOSINOPHILS PERCENT AUTO 2 % (0-6); Hematocrit 34.5 % (37.0-53.0); Hemoglobin 10.7 g/dL (13.5-17.5); IMMATURE GRAN ABSOLUTE AUTO 0.05 K/mm3 (0.00-0.10); IMMATURE GRAN PERCENT AUTO 0 % (0-1); LYMPHOCYTES ABSOLUTE AUTO 0.69 K/mm3 (0.84-5.20); LYMPHOCYTES PERCENT AUTO 6 % (21-46); MONOCYTES ABSOLUTE AUTO 0.66 K/mm3 (0.16-1.47); MONOCYTES PERCENT AUTO 6 % (4-13); Mean Corpuscular HGB 27.2 pg (26.0-34.0); Mean Corpuscular Volume 88 fL (80-100); Mean Platelet Volume 9.8 fL (9.1-12.4); NEUTROPHILS ABSOLUTE AUTO 9.74 K/mm3 (1.96-9.15); NEUTROPHILS PERCENT AUTO 86 % (41-73); NRBC ABSOLUTE 0.02 K/mm3 (0.00-0.02); NRBC Auto 0.2 /100 WBC (0.0-0.2); Platelet Count 165 K/mm3 (150-400); RDW Standard Deviation 48.1 fL (35.1-46.3); Red Blood Cell Count 3.94 M/mm3 (4.30-5.90); White Blood Cell Count 11.34 K/mm3 (4.00-11.30)
[2020-10-06 22:18] LABS: Magnesium, Blood 2.1 mg/dL (1.6-2.4)
[2020-10-06 22:32] LABS: Albumin/Globulin Ratio 0.6 (0.8-1.8); Bilirubin, Total 0.5 mg/dL (0.1-1.0); Bun/Creatinine Ratio 11.7 (12.0-20.0); Calcium, Blood 7.4 mg/dL (8.5-10.1); Creatinine, Blood 2.82 mg/dL (0.60-1.20); Globulin, Blood 4.7 g/dL (2.2-4.0); Phosphorus, Blood 1.9 mg/dL (2.5-4.9); Potassium, Blood 4.4 mmol/L (3.5-5.5); Total Protein, Blood 7.7 g/dL (6.4-8.2)
[2020-10-06 22:34] LABS: Bilirubin, Urine Neg (Neg); Blood, Urine 5+ (Neg); Glucose Qualitative, Urine Neg (Neg); Ketones, Urine Neg (Neg); Leukocyte Esterase, Urine 3+ (Neg); Nitrite, Urine Neg (Neg); Protein, Urine 4+ (Neg); Source, Urine Catheter; Urobilinogen, Urine NORM (Normal); pH, Urine 6.5 (5.0-8.0)
[2020-10-06 22:36] LABS: Appearance, Urine Turbid (Clear); Color, Urine Red (P-Yellow)
[2020-10-06 22:45] LABS: Bacteria Few /hpf; Red Blood Cells, Urine TNTC /hpf (0-2); Squamous Epithelial Cells Not Seen /hpf (Few); White Blood Cells, Urine 25-50 /hpf (0-5)
--- NOTE | 2020-10-07 02:20 | NUR ---
RECEIVED REPORT FROM MANFREDED RN. PT TRANSPORTED TO MEDICAL FLOOR VIA GURNEY, SLIDE-TRANSFERRED ONTO BED WITH SLIDE-SHEET AND ASSIST OF 4. ORIENTED TO ROOM/UNIT, VS TAKEN, BP'S STABLE AT THIS TIME. NO OTHER ACUTE SIGNS OF DISTRESS NOTED. CALL LIGHT, POSSESSIONS IN REACH, BED IN LOW AND LOCKED POSITION WITH ALARMS ON.
--- NOTE | 2020-10-07 03:30 | NUR ---
SPOKE TO DR. CASH REGARDING PT'S HYPOTENSION AND ORDERS FOR IV LASIX; STATED TO HOLD MEDICATION AND MONITOR PT'S BP'S AT THIS TIME. ORDERS RECEIVED TO INITIATE CBI. CLARIFIED ORDERED DOSE OF ROCEPHIN D/T PT ALLERGY, CONFIRMED ABSENCE OF ALLERGY AND STATED TO GIVE. WILL CONTINUE TO MONITOR.
--- NOTE | 2020-10-07 07:25 | NUR ---
ROTATING EQUIPMENT ENGINEER SUMMARY PT RESTING, IN NAD. VS REVIEWED, BP'S AND TEMPS IMPROVING . PT DENIES PAIN OR DISCOMFORT. HAS BEEN SLEEPING ON AND OFF SINCE ARRIVAL TO FLOOR. NO ACUTE NEEDS ASSESSED AT THIS TIME. CALL LIGHT, POSSESSIONS IN REACH, BED IN LOW AND LOCKED POSITION, CBI INFUSING THROUGH 3-WAY GONZALEZ CATHETER, DRAINING CRANBERRY COLORED URINE, FEW SMALL CLOTS NOTED. PT DENIES URINARY DISCOMFORT AT THIS TIME. NO ACUTE NEEDS ASSESSED AT THIS TIME. CALL LIGHT, POSSESSIONS IN REACH, BED IN LOW AND LOCKED POSITION WITH ALARMS ON. REPORT GIVEN TO BART ALANIZ.
[2020-10-07 09:59] LABS: BASOPHILS ABSOLUTE AUTO 0.03 K/mm3 (0.00-0.23); BASOPHILS PERCENT AUTO 0 % (0-2); EOSINOPHILS ABSOLUTE AUTO 0.04 K/mm3 (0.00-0.68); EOSINOPHILS PERCENT AUTO 0 % (0-6); Hematocrit 33.6 % (37.0-53.0); Hemoglobin 10.4 g/dL (13.5-17.5); IMMATURE GRAN ABSOLUTE AUTO 0.05 K/mm3 (0.00-0.10); IMMATURE GRAN PERCENT AUTO 0 % (0-1); LYMPHOCYTES ABSOLUTE AUTO 1.92 K/mm3 (0.84-5.20); LYMPHOCYTES PERCENT AUTO 13 % (21-46); MONOCYTES PERCENT AUTO 9 % (4-13); Mean Corpuscular HGB 27.6 pg (26.0-34.0); Mean Corpuscular Volume 89 fL (80-100); Mean Platelet Volume 10.2 fL (9.1-12.4); NEUTROPHILS PERCENT AUTO 78 % (41-73); Platelet Count 166 K/mm3 (150-400); RDW Coefficient Variation 15.5 % (11.7-14.2); Red Blood Cell Count 3.77 M/mm3 (4.30-5.90); White Blood Cell Count 14.84 K/mm3 (4.00-11.30)
[2020-10-07 10:20] LABS: Albumin, Blood 2.7 g/dL (3.4-5.0); Albumin/Globulin Ratio 0.6 (0.8-1.8); Bilirubin, Total 0.7 mg/dL (0.1-1.0); Bun/Creatinine Ratio 12.1 (12.0-20.0); Calcium, Blood 6.9 mg/dL (8.5-10.1); Creatinine, Blood 3.15 mg/dL (0.60-1.20); Globulin, Blood 4.3 g/dL (2.2-4.0); Potassium, Blood 4.5 mmol/L (3.5-5.5)
--- NOTE | 2020-10-07 18:34 | NUR ---
Shift summary: Pt alert, confused at times. No complaints, pt has requested a medication to assist with sleeping. Will pass information to NOC shift RN. in room, pt reports that he has not slept well for the last few nights.
--- NOTE | 2020-10-07 19:05 | NUR ---
ASSUMED CARE RECEIVED REPORT FROM BART ALANIZ. PT ASLEEP, IN NAD; RESPS E/U. CBI INFUSING TO 3-WAY GONZALEZ, DRAINING LIGHT CRANBERRY COLORED URINE TO GRAVITY. NO ACUTE NEEDS ASSESSED AT THIS TIME. CALL LIGHT, POSSESSIONS IN REACH, BED IN LOW AND LOCKED POSITION WITH ALARMS ON.
--- NOTE | 2020-10-07 23:17 | NUR ---
SPOKE TO ANTWAN BEARDEN REGARDING PT'S HYPOTENSION AND MEDICATIONS HELD. NO NEW ORDERS RECEIVED. CONTINUE TO MONITOR.
--- NOTE | 2020-10-08 06:32 | NUR ---
PULMONARY NURSE PRACTITIONER SUMMARY PT ASLEEP, IN NAD. VS REVIEWED, BP'S STABLE. APPEARED TO SLEEP WELL T/O NIGHT. CBI ONGOING TO 3-WAY GONZALEZ, DRAINING GRACE URINE TO GRAVITY, NO CLOTS NOTED. APPEARS TO BE INCREASINGLY ALERT, ALTHOUGH INTERMITTENTLY CONFUSED AT TIMES. NO ACUTE NEEDS ASSESSED AT THIS TIME. CALL LIGHT, POSSESSIONS IN REACH, BED IN LOW AND LOCKED POSITION WITH ALARMS ON. WILL REPORT OFF TO ONCOMING RN.
[2020-10-08 07:38] LABS: BASOPHILS ABSOLUTE AUTO 0.02 K/mm3 (0.00-0.23); BASOPHILS PERCENT AUTO 0 % (0-2); EOSINOPHILS ABSOLUTE AUTO 0.19 K/mm3 (0.00-0.68); EOSINOPHILS PERCENT AUTO 2 % (0-6); Hematocrit 28.3 % (37.0-53.0); Hemoglobin 8.9 g/dL (13.5-17.5); IMMATURE GRAN ABSOLUTE AUTO 0.03 K/mm3 (0.00-0.10); IMMATURE GRAN PERCENT AUTO 0 % (0-1); LYMPHOCYTES ABSOLUTE AUTO 1.42 K/mm3 (0.84-5.20); LYMPHOCYTES PERCENT AUTO 16 % (21-46); MONOCYTES ABSOLUTE AUTO 0.63 K/mm3 (0.16-1.47); MONOCYTES PERCENT AUTO 7 % (4-13); Mean Corpuscular HGB 27.6 pg (26.0-34.0); Mean Corpuscular HGB Conc 31.4 g/dL (31.5-36.5); Mean Corpuscular Volume 88 fL (80-100); Mean Platelet Volume 10.2 fL (9.1-12.4); NEUTROPHILS ABSOLUTE AUTO 6.54 K/mm3 (1.96-9.15); NEUTROPHILS PERCENT AUTO 74 % (41-73); Platelet Count 139 K/mm3 (150-400); RDW Coefficient Variation 15.6 % (11.7-14.2); RDW Standard Deviation 49.1 fL (35.1-46.3); Red Blood Cell Count 3.23 M/mm3 (4.30-5.90); White Blood Cell Count 8.83 K/mm3 (4.00-11.30)
[2020-10-08 07:57] LABS: Albumin, Blood 2.4 g/dL (3.4-5.0); Albumin/Globulin Ratio 0.6 (0.8-1.8); Bilirubin, Total 0.4 mg/dL (0.1-1.0); Bun/Creatinine Ratio 12.3 (12.0-20.0); Calcium, Blood 6.7 mg/dL (8.5-10.1); Creatinine, Blood 3.26 mg/dL (0.60-1.20); Potassium, Blood 3.9 mmol/L (3.5-5.5); Total Protein, Blood 6.4 g/dL (6.4-8.2)
--- NOTE | 2020-10-08 11:20 | NUR ---
Irrigation and bernabe catheter discontinued in anticipation of discharge today. Spoke with Dr. Gerber, pt able to be discharged after he is able to void without help of bernabe.
--- NOTE | 2020-10-08 15:36 | NUR ---
IVs removed, pt voiding on his own; is not bloody. Discharge papers reviewed and questions answered. No concerns on discharge.
== END 2020-10-08 15:26 | disposition home or self-care (01) | DRG 864 ==
LOC: ER 20:50 → MEDS 20:51 → ER 10-07 02:25 → MEDS 10-07 02:40
PROVIDERS: Family Medicine; Student in an Organized Health Care Education/Training Program; ADMIT Internal Medicine
DX: R50.2 Drug induced fever (principal); R65.10 Systemic inflammatory response syndrome (SIRS) of non-infectious origin without acute organ dysfunction; N39.0 Urinary tract infection, site not specified; I13.0 Hypertensive heart and chronic kidney disease with heart failure and stage 1 through stage 4 chronic kidney disease, or unspecified chronic kidney disease; I50.32 Chronic diastolic (congestive) heart failure; R41.82 Altered mental status, unspecified; E11.22 Type 2 diabetes mellitus with diabetic chronic kidney disease; J45.909 Unspecified asthma, uncomplicated; R31.0 Gross hematuria; N18.30 Chronic kidney disease, stage 3 unspecified; I48.91 Unspecified atrial fibrillation; N40.0 Benign prostatic hyperplasia without lower urinary tract symptoms; C67.9 Malignant neoplasm of bladder, unspecified; M10.9 Gout, unspecified; T50.A95A Adverse effect of other bacterial vaccines, initial encounter; E11.42 Type 2 diabetes mellitus with diabetic polyneuropathy; D63.1 Anemia in chronic kidney disease; Z90.79 Acquired absence of other genital organ(s); Z86.73 Personal history of transient ischemic attack (TIA), and cerebral infarction without residual deficits; Z98.890 Other specified postprocedural states; Z88.0 Allergy status to penicillin; Z88.1 Allergy status to other antibiotic agents; Z88.8 Allergy status to other drugs, medicaments and biological substances; Z95.0 Presence of cardiac pacemaker; Z79.899 Other long term (current) drug therapy; Z79.01 Long term (current) use of anticoagulants; Z79.02 Long term (current) use of antithrombotics/antiplatelets
CPT/HCPCS: 36415; 51702; 71045; 80053; 81001; 82947; 83605; 83735; 83880; 84100; 85025; 87040; 87086; 93005; 93010; 94760; 96365-59; 96367; 96375; 99285-25; A9270; G0378; J0696; J1956; J3370; J7030; J7050; J7060

== ENCOUNTER → 2021-02-02 | Outpatient (CLI) | payer OTHER ==
[2021-02-02 15:54] LABS: BASOPHILS ABSOLUTE AUTO 0.05 K/mm3 (0.00-0.23); BASOPHILS PERCENT AUTO 1 % (0-2); EOSINOPHILS PERCENT AUTO 2 % (0-6); Hematocrit 35.6 % (37.0-53.0); IMMATURE GRAN ABSOLUTE AUTO 0.04 K/mm3 (0.00-0.10); IMMATURE GRAN PERCENT AUTO 0 % (0-1); LYMPHOCYTES ABSOLUTE AUTO 2.17 K/mm3 (0.84-5.20); LYMPHOCYTES PERCENT AUTO 21 % (21-46); MONOCYTES ABSOLUTE AUTO 0.77 K/mm3 (0.16-1.47); MONOCYTES PERCENT AUTO 8 % (4-13); Mean Corpuscular HGB 27.4 pg (26.0-34.0); Mean Corpuscular HGB Conc 30.9 g/dL (31.5-36.5); Mean Corpuscular Volume 89 fL (80-100); Mean Platelet Volume 11.2 fL (9.1-12.4); NEUTROPHILS PERCENT AUTO 68 % (41-73); Platelet Count 187 K/mm3 (150-400); RDW Coefficient Variation 16.2 % (11.7-14.2); Red Blood Cell Count 4.01 M/mm3 (4.30-5.90); White Blood Cell Count 10.13 K/mm3 (4.00-11.30)
== END | disposition home or self-care (01) ==
LOC: LAB SHORT 13:15 → LAB 13:15
PROVIDERS: Internal Medicine Hematology & Oncology
DX: D50.9 Iron deficiency anemia, unspecified (principal)
CPT/HCPCS: 85025

== ENCOUNTER 2021-02-21 18:42 | Emergency (ER) | payer OTHER ==
[~2021-02-21] VITALS: Ht 175.3 cm; Wt 90.7 kg
== END 2021-02-21 21:27 | disposition home or self-care (01) ==
LOC: ER 18:42
DX: S01.111A Laceration without foreign body of right eyelid and periocular area, initial encounter (principal); S61.411A Laceration without foreign body of right hand, initial encounter; S50.11XA Contusion of right forearm, initial encounter; S60.211A Contusion of right wrist, initial encounter; S00.33XA Contusion of nose, initial encounter; S00.83XA Contusion of other part of head, initial encounter; R04.0 Epistaxis; W01.10XS Fall on same level from slipping, tripping and stumbling with subsequent striking against unspecified object, sequela; Z88.8 Allergy status to other drugs, medicaments and biological substances; Z88.0 Allergy status to penicillin; Z88.1 Allergy status to other antibiotic agents; Z79.899 Other long term (current) drug therapy; Z79.4 Long term (current) use of insulin; E11.22 Type 2 diabetes mellitus with diabetic chronic kidney disease; I13.0 Hypertensive heart and chronic kidney disease with heart failure and stage 1 through stage 4 chronic kidney disease, or unspecified chronic kidney disease; N18.9 Chronic kidney disease, unspecified; I50.32 Chronic diastolic (congestive) heart failure; J45.909 Unspecified asthma, uncomplicated; I48.91 Unspecified atrial fibrillation; M10.9 Gout, unspecified; D63.1 Anemia in chronic kidney disease; E11.42 Type 2 diabetes mellitus with diabetic polyneuropathy
CPT/HCPCS: 12011; 70450; 73090; 73120; 90471; 90714; 99284-25

== ENCOUNTER 2021-02-27 22:05 | Emergency (ER) | payer OTHER ==
[~2021-02-27] VITALS: Ht 172.7 cm; Wt 99.8 kg
[2021-02-27 23:40] LABS: BASOPHILS ABSOLUTE AUTO 0.04 K/mm3 (0.00-0.23); BASOPHILS PERCENT AUTO 1 % (0-2); EOSINOPHILS PERCENT AUTO 3 % (0-6); Hematocrit 30.1 % (37.0-53.0); Hemoglobin 9.5 g/dL (13.5-17.5); IMMATURE GRAN ABSOLUTE AUTO 0.03 K/mm3 (0.00-0.10); IMMATURE GRAN PERCENT AUTO 0 % (0-1); LYMPHOCYTES ABSOLUTE AUTO 1.33 K/mm3 (0.84-5.20); LYMPHOCYTES PERCENT AUTO 15 % (21-46); MONOCYTES ABSOLUTE AUTO 0.55 K/mm3 (0.16-1.47); MONOCYTES PERCENT AUTO 6 % (4-13); Mean Corpuscular HGB 27.6 pg (26.0-34.0); Mean Corpuscular HGB Conc 31.6 g/dL (31.5-36.5); Mean Corpuscular Volume 88 fL (80-100); Mean Platelet Volume 10.3 fL (9.1-12.4); NEUTROPHILS ABSOLUTE AUTO 6.51 K/mm3 (1.96-9.15); NEUTROPHILS PERCENT AUTO 74 % (41-73); Platelet Count 174 K/mm3 (150-400); RDW Coefficient Variation 16.3 % (11.7-14.2); RDW Standard Deviation 51.8 fL (35.1-46.3); Red Blood Cell Count 3.44 M/mm3 (4.30-5.90); White Blood Cell Count 8.76 K/mm3 (4.00-11.30)
== END 2021-02-28 00:07 | disposition home or self-care (01) ==
LOC: ER 22:05
PROVIDERS: Physician Assistant
DX: R04.0 Epistaxis (principal); I13.0 Hypertensive heart and chronic kidney disease with heart failure and stage 1 through stage 4 chronic kidney disease, or unspecified chronic kidney disease; E11.22 Type 2 diabetes mellitus with diabetic chronic kidney disease; N18.9 Chronic kidney disease, unspecified; I50.32 Chronic diastolic (congestive) heart failure; D63.1 Anemia in chronic kidney disease; E11.40 Type 2 diabetes mellitus with diabetic neuropathy, unspecified; I48.91 Unspecified atrial fibrillation; M10.9 Gout, unspecified; Z88.0 Allergy status to penicillin; Z88.1 Allergy status to other antibiotic agents; Z88.8 Allergy status to other drugs, medicaments and biological substances; Z79.899 Other long term (current) drug therapy; Z79.4 Long term (current) use of insulin
CPT/HCPCS: 30901; 85025; 99283-25; A9270

== ENCOUNTER 2021-04-26 09:06 | Day surgery (SDC) | payer OTHER ==
[~2021-04-26] VITALS: Ht 172.7 cm; Wt 84.1 kg
[~2021-04-26 09:06] MED LIST changes: +ATORVASTATIN CA20 MG PO; -SIMV10 PO
[2021-04-26] MEDS ORDERED: ELIQUIS2.5 MG PO (09:36)
[2021-04-26] MEDS ORDERED: FURO40 (09:37)
--- NOTE | 2021-04-26 13:00 | NUR ---
PT'S , WILIAN, HAS BEEN CALLED AND UPDATED ABOUT HOW PROCEDURE WENT AND NECCESSARY FOLLOW UP INFORMATION, ALONG WITH DISCHARGE INSTRUCTIONS. STATED VERBAL UNDERSTANDING OF ALL INSTRUCTIONS.
--- NOTE | 2021-04-26 13:35 | NUR ---
IV DC'D, CATH INTACT. PT OUT TO CARE VIA WHEELCHAIR, ACCOMPANIED BY . TUNNELED DIALYSIS CATH SITE SOFT AND NON-TENDER AT TIME OF DISCHARGE, NO BLEEDING OR SWELLING NOTED AT SITE.
== END 2021-04-26 13:30 | disposition home or self-care (01) ==
LOC: MHTC 09:06
DX: E11.22 Type 2 diabetes mellitus with diabetic chronic kidney disease (principal); N18.6 End stage renal disease; I25.10 Atherosclerotic heart disease of native coronary artery without angina pectoris; I48.91 Unspecified atrial fibrillation; J45.909 Unspecified asthma, uncomplicated; Z79.01 Long term (current) use of anticoagulants; Z79.4 Long term (current) use of insulin
CPT/HCPCS: 76937; 99152; 99153; C1750; C1769; C1894; J1644; J2250; J3010; J7040; J7050

== ENCOUNTER 2021-04-26 15:54 | Emergency (ER) | payer OTHER ==
[~2021-04-26] VITALS: Ht 172.7 cm; Wt 83.9 kg
[~2021-04-26 15:54] MED LIST changes: +FURO40
== END 2021-04-26 18:48 | disposition home or self-care (01) ==
LOC: ER 15:54
DX: T82.838A Hemorrhage due to vascular prosthetic devices, implants and grafts, initial encounter (principal); Z88.8 Allergy status to other drugs, medicaments and biological substances; Z88.0 Allergy status to penicillin; Z88.1 Allergy status to other antibiotic agents; Z79.899 Other long term (current) drug therapy; Z79.4 Long term (current) use of insulin; E11.22 Type 2 diabetes mellitus with diabetic chronic kidney disease; N18.6 End stage renal disease; J45.909 Unspecified asthma, uncomplicated; I48.91 Unspecified atrial fibrillation; M10.9 Gout, unspecified; E11.42 Type 2 diabetes mellitus with diabetic polyneuropathy; I13.0 Hypertensive heart and chronic kidney disease with heart failure and stage 1 through stage 4 chronic kidney disease, or unspecified chronic kidney disease; I50.32 Chronic diastolic (congestive) heart failure
CPT/HCPCS: 99283; A9270

== ENCOUNTER 2021-04-29 10:42 | Observation (INO) | payer OTHER ==
[~2021-04-29] VITALS: Ht 165.1 cm; Wt 85.3 kg
[2021-04-29 11:19] LABS: Source, Urine Foley catheter
[2021-04-29 11:23] LABS: Bilirubin, Urine Neg (Neg); Blood, Urine 5+ (Neg); Glucose Qualitative, Urine Neg (Neg); Ketones, Urine Neg (Neg); Leukocyte Esterase, Urine 1+ (Neg); Nitrite, Urine Neg (Neg); Protein, Urine 1+ (Neg); Urobilinogen, Urine NORM (Normal)
[2021-04-29 11:27] LABS: BASOPHILS ABSOLUTE AUTO 0.03 K/mm3 (0.00-0.23); BASOPHILS PERCENT AUTO 0 % (0-2); EOSINOPHILS ABSOLUTE AUTO 0.01 K/mm3 (0.00-0.68); EOSINOPHILS PERCENT AUTO 0 % (0-6); Hematocrit 34.9 % (37.0-53.0); Hemoglobin 10.9 g/dL (13.5-17.5); IMMATURE GRAN ABSOLUTE AUTO 0.12 K/mm3 (0.00-0.10); IMMATURE GRAN PERCENT AUTO 1 % (0-1); LYMPHOCYTES ABSOLUTE AUTO 0.31 K/mm3 (0.84-5.20); LYMPHOCYTES PERCENT AUTO 2 % (21-46); MONOCYTES ABSOLUTE AUTO 0.13 K/mm3 (0.16-1.47); MONOCYTES PERCENT AUTO 1 % (4-13); Mean Corpuscular HGB 26.7 pg (26.0-34.0); Mean Corpuscular HGB Conc 31.2 g/dL (31.5-36.5); Mean Corpuscular Volume 85 fL (80-100); Mean Platelet Volume 10.2 fL (9.1-12.4); NEUTROPHILS ABSOLUTE AUTO 15.87 K/mm3 (1.96-9.15); NEUTROPHILS PERCENT AUTO 96 % (41-73); Platelet Count 175 K/mm3 (150-400); RDW Coefficient Variation 17.8 % (11.7-14.2); RDW Standard Deviation 53.2 fL (35.1-46.3); Red Blood Cell Count 4.09 M/mm3 (4.30-5.90); White Blood Cell Count 16.47 K/mm3 (4.00-11.30)
[2021-04-29 11:42] LABS: Appearance, Urine Hazy (Clear); Color, Urine Pale Yellow (P-Yellow)
[2021-04-29 11:44] LABS: Bacteria Many /hpf; Squamous Epithelial Cells Few /hpf (Few)
[2021-04-29 11:45] LABS: Amorphous Light (0-Heavy); Mucus Light (0-Heavy)
[2021-04-29 11:52] LABS: Influenza A, PCR NEGATIVE (NEGATIVE); Influenza B, PCR NEGATIVE (NEGATIVE); Resp Syncytial Virus, PCR NEGATIVE (NEGATIVE); SARS-Cov-2 (COVID-19) PCR, MMC NEGATIVE (NEGATIVE)
[2021-04-29 11:55] LABS: Albumin, Blood 2.7 g/dL (3.4-5.0); Albumin/Globulin Ratio 0.6 (0.8-1.8); Bilirubin, Total 1.7 mg/dL (0.1-1.0); Calcium, Blood 6.7 mg/dL (8.5-10.1); Creatinine, Blood 4.64 mg/dL (0.60-1.20); Globulin, Blood 4.6 g/dL (2.2-4.0); Potassium, Blood 2.1 mmol/L (3.5-5.5); Total Protein, Blood 7.3 g/dL (6.4-8.2)
[2021-04-29 12:48] LABS: Bun/Creatinine Ratio 20.7 (12.0-20.0)
--- NOTE | 2021-04-29 18:04 | NUR ---
DAY SHIFT SUMMARY COMFORT CARE PT ARRIVED FROM THE ED. CENTRAL LINE TO RT GROING, DRESSING PLACED AND INTACT. PT IS NONRESPONSIVE, ATTENDS IN PLACE, HAS BEEN UNRESPONSIVE SINCE ARRIVAL TO MED FLOOR FROM ED. PT'S ONLY FAMILY ARE HIS TWO NEPHEWS WHO HAVE VISITED BEDSIDE. PT ARRIVED TO MED FLOOR WITH BLOOD CLOTTED IN RT NOSTRIL AND AROUND NOSE, AND O2 3L NC. PT WAS CLEANED UP AND REDRESSED. FAMILY ORIENTED TO ROOM AND CALL LIGHT.
[2021-04-29] MEDS ORDERED: ALBU90OI INH (19:55)
[2021-04-29] MEDS ORDERED: CLOP75 PO (19:59)
--- NOTE | 2021-04-29 20:13 | NUR ---
RESTING QUIETLY ON LEFT SIDE. NEPHEWS IN ROOM. CALL LIGHT IN REACH. O2 PER NC FOR COMFORT.
--- NOTE | 2021-04-30 00:43 | NUR ---
SOME IRREGULAR BREATHING, MEDICATED PER MAR FOR DISCOMFORT. NEPHEWS REMAIN AT BEDSIDE. CALL LIGHT IN REACH
--- NOTE | 2021-04-30 00:44 | NUR ---
SOME AUGUST STOKING NOTED. BREATHING DISCUSSED WITH FAMILY. NO NOTED DISTRESS. CALL LIGHT IN REACH
--- NOTE | 2021-04-30 02:25 | NUR ---
REPOSITIONED. NOTE INCREASED SECRETIONS WITH LUNG SOUNDS. SCOP PATCH AND ATROPINE DROPS USED. FAMILY MEMBERS REMAIN AT BEDSIDE. EARLIER THEY SPOKE WITH CHARGE NURSE RE HOME INFORMATION. CALL LIGHT INE REACH
--- NOTE | 2021-04-30 04:01 | NUR ---
THERAPEUTIC RECREATION SPECIALIST SUMMARY REMAINS ON COMFORT CARE. NEPHEWS REMAIN AT BEDSIDE. HAS RECEIVED ROXINAL ORAL X 2 OF THIS WRITING - FOR APPARENT DISCOMFORT AND AIR HUNGER. RESPS SEEM TO ALTERNATE BETWEEN AUGUST AMBROSIO AND BREAKS OF APNEA. O2 PER NC AND HOB ELEVATED FOR COMFORT. SOME SECRETIONS NOTED AND SCOP PATCH, ETC ADMINISTERED. CALL LIGHT IN REACH
--- NOTE | 2021-04-30 04:06 | NUR ---
MEDICATED FOR AIR HUNGER. CALL LIGHT IN REACH
--- NOTE | 2021-04-30 05:07 | NUR ---
PT'S NEPHEW CAME OUT OF ROOM, VOICED PT HAD STOPPED BREATHING. 2 NURSES ENTERED ROOM, NO NOTED RESPIRATIONS PER AUSCULTATION OR BY VISUAL. NO NOTED HEART BEAT PER AUSCULTATION OR CAROTID PULSE. CHARGE NURSE ONE OF NURSES MENTIONED ABOVE. WILL CALL MD FOR PRONOUNCING . FAMILY ALLOWED TIME IN ROOM TO MOURN. FAMILY UNSURE OF ARRANGEMENTS AT THIS TIME.
--- NOTE | 2021-04-30 05:58 | NUR ---
EXPIRATION NOTE MD NOTIFIED OF PT PASSING AT 0458 THIS AM (2 RN'S VERIFIED OF NO HEARTBEAT OR RESPIRATIONS). (DR Wilkinson) ACCEPTED 2 MAMMOGRAPHY TECHNICIAN. Attila WAS NOTIFIED OF PT PASSING AT 0515 PER CHARGE NURSE - SEE CHARGE NURSE NOTE. NEPHEWS IN ROOM AT THIS TIME, CHARGE NURSE TO SPEAK WITH THEM RE HOME/ETC ARRANGEMENTS.
--- NOTE | 2021-04-30 08:36 | NUR ---
SUPERVISOR [employer] ME CALLED TO DISCUSS PERMITS REQUIRED FOR HOME BURIAL. ME SPOKE WITH FAMILY AT BEDSIDE. ME WILL REMOVE PATIENT TO M[place]GUE WHILE FAMILY OBTAINS PROPER DOCUMENTATION. FAMILY IN AGREEANCE. BODY REMOVED AT 0815.
== END 2021-04-30 04:58 ==
LOC: ER 10:42 → MEDS 10:43 → ER 12:51 → MEDS 12:51
PROVIDERS: Emergency Medicine; ADMIT Family Medicine
DX: A41.9 Sepsis, unspecified organism (principal); R65.21 Severe sepsis with septic shock; I13.2 Hypertensive heart and chronic kidney disease with heart failure and with stage 5 chronic kidney disease, or end stage renal disease; E11.22 Type 2 diabetes mellitus with diabetic chronic kidney disease; I50.32 Chronic diastolic (congestive) heart failure; N18.6 End stage renal disease; J45.909 Unspecified asthma, uncomplicated; I48.91 Unspecified atrial fibrillation; E87.6 Hypokalemia; D64.9 Anemia, unspecified; F03.90 Unspecified dementia, unspecified severity, without behavioral disturbance, psychotic disturbance, mood disturbance, and anxiety; N40.0 Benign prostatic hyperplasia without lower urinary tract symptoms; Z95.0 Presence of cardiac pacemaker; Z85.51 Personal history of malignant neoplasm of bladder; Z92.21 Personal history of antineoplastic chemotherapy; Z79.84 Long term (current) use of oral hypoglycemic drugs; Z79.01 Long term (current) use of anticoagulants; Z20.822 Contact with and (suspected) exposure to COVID-19; Z66 Do not resuscitate
CPT/HCPCS: 0241U; 36415; 51701; 71045; 80053; 81001; 83605; 85025; 93005; 93010; A9270; J1630; J1642; J1815; J2060; J2185; J2270; J3480; J7030; J7060